=== PATIENT | female | born 1950 | race Caucasian/White ===

== ENCOUNTER 2016-11-30 05:11 | Inpatient (IN) | payer OTHER ==
[2016-11-04 14:28] VITALS: BMI 34.0
--- NOTE | 2016-11-04 15:02 | PAT Medication Instructions ---
Service Date Nov 04, 2016. Current Home Medication List Atorvastatin (Lipitor), 80 MG PO HS Gabapentin (Neurontin), 600 MG PO HS Glimepiride (Glimepiride), 1 TAB PO QPM Hctz/Lisinopril (Lisinopril/Hctz 10/12.5 Mg), 1 TAB PO QAM Levothyroxine Sodium (Levothyroxine Sodium), 1 TAB PO QAM Metformin Hcl (Glucophage), 1,000 MG PO BID Multiple Vitamins W/ Minerals (Eye Vitamins), 1 CAP PO QAM Omeprazole (Prilosec), 20 MG PO QAM Medication Instructions For Your Scheduled Surgery - Hold the following medications 48 hours prior to surgery: Metformin Hcl (Glucophage), 1,000 MG PO BID - Hold the following medications the morning of surgery: Hctz/Lisinopril (Lisinopril/Hctz 10/12.5 Mg), 1 TAB PO QAM Multiple Vitamins W/ Minerals (Eye Vitamins), 1 CAP PO QAM - Take the following medications the morning of surgery with a sip of water OTHERWISE NOTHING TO EAT OR DRINK AFTER MIDNIGHT: Omeprazole (Prilosec), 20 MG PO QAM Levothyroxine Sodium (Levothyroxine Sodium), 1 TAB PO QAM - Take the following medications as scheduled the night before surgery: Atorvastatin (Lipitor), 80 MG PO HS Gabapentin (Neurontin), 600 MG PO HS Glimepiride (Glimepiride), 1 TAB PO QPM If you have any questions please call us at [phone] or [phone] or [phone]
--- NOTE | 2016-11-04 15:35 | DIAGNOSTIC IMAGING REPORT ---
CHEST 2 VIEWS ROUTINE CLINICAL HISTORY: Preoperative evaluation. COMPARISON STUDY: No previous studies for comparison. FINDINGS: The lung volumes are normal. There is no pneumothorax or pleural effusion. There is borderline cardiomegaly without evidence of pulmonary edema. There is no consolidation to suggest pneumonia. IMPRESSION: 1. No acute cardiopulmonary findings. 2. Borderline cardiomegaly. Electronically signed by: Milton Castano M.D. 11/04/2016 3:34 PM Dictated Date/Time: 11/04/2016 3:33 PM
[2016-11-04 15:44] LABS: BASO % 0.4 %; BASO ABS # 0.03 K/uL (0-0.2); COMPLETE YES; EOS % 1.9 %; HEMATOCRIT 38.6 % (37-47); IG% 0.5 %; LYMPH % 22.2 %; LYMPH ABS # 1.74 K/uL (1.2-3.4); MEAN CELL VOLUME 92.8 fL (80-100); MEAN CORPUSCULAR HGB CONC 32.4 g/dl (32-36); MEAN PLATELET VOLUME 9.8 fL (7.4-10.4); MONO % 6.1 %; NEUT % 68.9 %; PLATELET COUNT 255 K/uL (130-400); RED BLOOD COUNT 4.16 M/uL (4.2-5.4); WHITE BLOOD COUNT 7.83 K/uL (4.8-10.8)
[2016-11-04 15:48] LABS: URINE APPEARANCE CLEAR (CLEAR); URINE BILIRUBIN NEG (NEG); URINE COLOR YELLOW; URINE EPITHELIAL CELL AUTO >30 /lpf (0-5); URINE NITRITE NEG (NEG); URINE SPECIFIC GRAVITY 1.015 (1.000-1.030); UROBILINOGEN NEG (NEG); ZZUR CULT IF INDIC CLEAN CATCH YES
[2016-11-04 15:51] LABS: MANUAL MICROSCOPIC REQUIRED? NO; REVIEW REQ? NO
[2016-11-04 15:56] LABS: INR 1.1 (0.9-1.1); PROTHROMBIN TIME (PATIENT) 11.9 SECONDS (9.0-12.0)
--- NOTE | 2016-11-29 17:29 | HISTORY & PHYSICAL EXAMINATION ---
DATE OF ADMISSION: 11/30/2016 ADMISSION HISTORY AND PHYSICAL CHIEF COMPLAINT: Chronic right knee pain. HISTORY OF PRESENT ILLNESS: This is a 66-year-old female patient of Dr. Nails'narda complaining of chronic right knee pain, longstanding, now progressively getting worse. The patient has been diagnosed with end-stage osteoarthritis, per clinical and radiographic exams. The patient has failed conservative treatment including the use of a cane, anti-inflammatories and intraarticular injections. The patient has increased pain with weightbearing activities and her pain does interfere with her activities of daily living. PAST MEDICAL HISTORY: Hypertension, hypercholesterolemia, diabetes mellitus, hypothyroidism, rheumatoid arthritis, osteoarthritis, acid reflux, obesity and endometrial cancer. SOCIAL HISTORY: Nonsmoker, nondrinker. FAMILY HISTORY: Noncontributory. REVIEW OF SYSTEMS: Chronic right knee pain, otherwise denies any shortness of breath, chest pain, nausea, vomiting or any other joint complaints. PAST SURGICAL HISTORY: Back surgery, shoulder surgery, cholecystectomy, hysterectomy and bladder surgery. ALLERGIES: No known drug allergies. MEDICATIONS: Gabapentin 600 mg at bedtime, lisinopril/hydrochlorothiazide 10/12.5 q.a.m., omeprazole 20 mg daily, atorvastatin 80 mg at bedtime, glimepiride for diabetes 1 mg before dinner, metformin b.i.d., and levothyroxine 75 mg q.a.m. PHYSICAL EXAMINATION: GENERAL: Well-developed, well-nourished 66-year-old female in no acute distress. She is alert and oriented x3 and pleasant. HEENT: Normocephalic, atraumatic. Extraocular motions are intact. Pupils are equal and reactive to light. HEART: Regular rate and rhythm, no murmurs appreciated. LUNGS: Clear. ABDOMEN: Soft and nontender, bowel sounds are present. EXTREMITIES: Right knee reveals medial joint line tenderness. Range of motion of 0-135. She has a neutral alignment. She has peripatellar pain. She has crepitation with passive range of motion. She has 5/5 strength. NEUROLOGIC: Neurovascularly, she is intact in her right lower extremity. DIAGNOSES: Right knee end-stage osteoarthritis, hypertension, hypercholesterolemia, diabetes mellitus, hypothyroidism, rheumatoid arthritis, osteoarthritis, back surgery, acid reflux, obesity, and endometrial cancer. PLAN: The patient was advised of her diagnosis. Indications, risks, benefits, and postop course have all been reviewed. The patient wishes to proceed with a right total knee arthroplasty. Necessary consent forms, preoperative testing and clearances have been obtained.
[2016-11-30] VITALS (11 sets, daily range): BP systolic 112–177; BP diastolic 73–101; PULSE 54–72; TEMP 36.3–37; O2SAT 96–100; Ht 165.1 cm; Wt 93.4 kg
[~2016-11-30] VITALS: Ht 165.1 cm; Wt 93.4 kg
[~2016-11-30 05:11] MED LIST: ATOR-26 PO; GABA1CAP PO; GLIM4TAB2 PO; LEVO75TA5 PO; LSN/10125 PO; METF-384 PO; MULTCAP7 PO; OMEP10CA2 PO
[2016-11-30] MEDS ORDERED: LACTATED RINGER'S 1000ML IV SCH ×2 (06:00)
[2016-11-30] MEDS ORDERED: FAMOTIDINE 20 MG TAB PO SCH (06:00)
[2016-11-30] MEDS ORDERED: GABAPENTIN 300 MG CAP PO SCH (06:00)
[2016-11-30] MEDS ORDERED: LACTATED RINGER'S 500 ML IV SCH (06:00)
[2016-11-30] MEDS ORDERED: ACETAMINOPHEN 500 MG TAB PO SCH (06:00)
[2016-11-30] MEDS ORDERED: CEFAZOLIN 2000 MG/60 ML D5W 60 ML IV SCH (06:00)
[2016-11-30] MEDS ORDERED: CeleBREX 200 MG CAP PO SCH (06:00)
[2016-11-30] MEDS ORDERED: METOCLOPRAMIDE HCL 10 MG TAB PO SCH (06:00)
[2016-11-30] MEDS ORDERED: ROPIVACAINE 5MG/ML 30 ML 150 MG, BUPIVACAINE/EPINEPHR 0.5% MPF 30 ML, KETOROLAC TROMETH... INFIL SCH ×6 (06:00)
[2016-11-30] MEDS ORDERED: BUPIVACAINE 0.25% 30 ML VIAL ONE (06:58)
[2016-11-30] MEDS ORDERED: BUPIVACAINE 0.5 % 5 MG/1 ML PF 10ML VIAL ONE (06:58)
[2016-11-30] MEDS: TRANEXAMIC ACID INJ 1,000 MG in SODIUM CHLORIDE 0.9% 100ML 100 ML IV SCH ×2 (07:00→10:47)
--- NOTE | 2016-11-30 07:06 | History & Physical Bridge Note ---
H&P Re-Evaluation Bridge Note: I have examined the patient, reviewed the History & Physical and in the interval since the performance of the History & Physical I have noted the following changes of clinical significance: No changes noted
[2016-11-30] MEDS ORDERED: MIDAZOLAM HCL 1 MG/ML 2ML VIAL ONE (07:11)
[2016-11-30] MEDS ORDERED: FENTANYL CITRATE INJ 50 MCG/1 ML 2 ML VIAL ONE (07:11)
[2016-11-30] MEDS ORDERED: ORTHO JOINT ANESTHETIC ONE (07:34)
[2016-11-30] MEDS ORDERED: BACITRACIN 50000 UNIT VIAL ONE (07:35)
[2016-11-30] MEDS ORDERED: POVIDONE-IODINE OP SOLN 30 ML BTL ONE (07:35)
[2016-11-30] MEDS ORDERED: FENTANYL CITRATE INJ 50 MCG/1 ML 2 ML VIAL IV PRN (08:00)
[2016-11-30] MEDS ORDERED: ATROPINE SULFATE 0.1 MG/ML 5ML SYR IV PRN (08:00)
[2016-11-30] MEDS ORDERED: EpHEDrine SULFATE INJ 50 MG/ML AMP IV PRN (08:00)
[2016-11-30] MEDS ORDERED: ONDANSETRON INJ 2 MG/ML 2 ML VIAL IV PRN (08:00)
--- NOTE | 2016-11-30 08:38 | [facility] Post Operative Brief Note ---
Immediate Operative Summary Operative Date Nov 30, 2016. Pre-Operative Diagnosis Right knee end-stage osteoartritis Post-Operative Diagnosis Right knee end-stage osteoartritis Procedure(s) Performed Right total knee arthroplasty Surgeon Dr. Nails Data Librarian Surgeon(s) Jose Chowdary PA-C Estimated Blood Loss 5cc Findings grade 4 djd patellofemoral Specimens A. Right knee bone and tissue Drains 2 hemovac Anesthesia spinal sedation orthomix Complication(s) None Disposition Recovery Room / PACU
[2016-11-30] MEDS ORDERED: LIDOCAINE HCL 2% 2 ML VIAL (20MG/ML) ONE (08:50)
[2016-11-30] MEDS ORDERED: PROPOFOL IV EMULSION 10 MG/ML 20 ML VIAL IV ONE (08:50)
[2016-11-30] MEDS ORDERED: BISACODYL 10 MG SUPP PR PRN (09:00)
[2016-11-30] MEDS ORDERED: ZOLPIDEM TARTRATE 5 MG TAB PO PRN (09:00)
[2016-11-30] MEDS ORDERED: MAGNESIUM HYDROXIDE SUSP 30 ML UDC PO PRN (09:00)
[2016-11-30] MEDS ORDERED: SOD PHOSPHATE/SOD BIPHOSPHATE ENEMA 132 ML BTL PR PRN (09:00)
[2016-11-30] MEDS ORDERED: MoRPHine SULFATE 2 MG/ML CARP IV PRN (09:00)
--- NOTE | 2016-11-30 09:42 | Anesthesiology Progress Note ---
Anesthesia Post Op Note Date & Time Nov 30, 2016 at 09:41 Vital Signs Pain Intensity: 0 Vital Signs Past 12 Hours Date Time Temp Pulse Resp B/P (MAP) Pulse Ox O2 Delivery O2 Flow Rate FiO2 11/30/16 09:35 62 15 131/67 98 Nasal Cannula 2 11/30/16 09:25 68 12 130/78 98 Mask 10 11/30/16 09:15 70 16 124/72 100 Mask 10 11/30/16 09:05 73 17 101/63 98 Mask 10 11/30/16 08:59 36.0 78 17 107/56 98 Mask 10 11/30/16 05:52 36.6 72 20 177/101 98 Room Air Notes Mental Status: alert / awake / arousable, participated in evaluation Pt Amnestic to Procedure: Yes Nausea / Vomiting: adequately controlled Pain: adequately controlled Airway Patency, RR, SpO2: stable & adequate BP & HR: stable & adequate Hydration State: stable & adequate Neuraxial Anesthesia: was administered, sensory block is resolving Anesthetic Complications: no major complications apparent
--- NOTE | 2016-11-30 09:42 | DIAGNOSTIC IMAGING REPORT ---
RIGHT KNEE 1 OR 2 VIEWS ROUTINE CLINICAL HISTORY: AP/LATERAL IN PACU RIGHT KNEE Right joint replacement COMPARISON: None. DISCUSSION: Patient is status post total right knee replacement. Good contact between prosthetic and underlying bone. Surgical drains are in position. Expected soft tissue postoperative change. IMPRESSION: Anatomic alignment status post total right knee replacement The above report was generated using voice recognition software. It may contain grammatical, syntax or spelling errors. Electronically signed by: Jose Valenzuela M.D. 11/30/2016 9:40 AM Dictated Date/Time: 11/30/2016 9:40 AM
[2016-11-30] MEDS ORDERED: GLUCOSE 10 TABS/TUBE PO PRN (09:45)
[2016-11-30] MEDS ORDERED: GLUCAGON FOR INJ 1 MG VIAL SQ PRN (09:45)
[2016-11-30] MEDS ORDERED: GLUCOSE 40% GEL 15 GM TUBE PO PRN (09:45)
[2016-11-30] MEDS ORDERED: DEXTROSE 50% 50 ML SYR IV PRN (09:45)
[2016-11-30] MEDS: SODIUM CHLORIDE 0.9% 1000ML 1,000 ML IV SCH ×2 (10:42→20:29)
[2016-11-30] MEDS ORDERED: MoRPHine SULFATE 4 MG/ML 1 ML CARP\\VIAL IV PRN (10:45)
[2016-11-30] MEDS ORDERED: GLIM1TAB2 PO (11:02)
--- NOTE | 2016-11-30 11:26 | Medical Consult ---
Consultation Date of Consultation: Nov 30, 2016. Attending Physician: Ar Nails M.D. Reason for Consultation: Post Op Medical Management History of Present Illness 66 year old female who is s/p right TKA today by Dr. Nails. Patient reports increasing right knee pain over the past couple of years. She failed outpatient conservative measures and therefore presented for the planned procedure today. Post operatively the patient is doing well. She reports her pain is well controlled. She reports continued numbness to both legs from anesthesia. She denies chest pain and shortness of breath. No abdominal pain or nausea. She denies lightheadedness and dizziness. She has not voided since surgery. Past Medical/Surgical History Medical Problems: (1) CKD (chronic kidney disease), stage III Status: Chronic (2) Diabetic polyneuropathy Status: Chronic (3) DM type 2 (diabetes mellitus, type 2) Status: Chronic (4) Dyslipidemia Status: Chronic (5) GERD (gastroesophageal reflux disease) Status: Chronic (6) HTN (hypertension) Status: Chronic (7) Hypothyroidism (acquired) Status: Chronic Surgical Problems: (1) H/O partial thyroidectomy Status: Chronic (2) History of appendectomy Status: Chronic (3) History of hysterectomy Status: Chronic (4) S/P cholecystectomy Status: Chronic Family History Diabetes mellitus FATHER MOTHER Social History Smoking Status: Never Smoker Alcohol Use: occasionally Allergies Coded Allergies: No Known Allergies (Verified , 11/30/16) Home Medications Glimepiride 1 Mg Tab 1 Tab PO DAILYBD 30 Days Levothyroxine Sodium 75 Mcg Tab 1 Tab PO QAM 90 Days Glucophage (Metformin Hcl) 1,000 Mg Tab 1,000 Mg PO BID Lipitor (Atorvastatin Calcium) 80 Mg Tab 80 Mg PO HS Lisinopril/Hctz 10/12.5 Mg (HCTZ/Lisinopril) 1 Ea Tab 1 Tab PO QAM Eye Vitamins (Multiple Vitamins W/ Minerals) 1 Cap Cap 1 Cap PO QAM Neurontin (Gabapentin) 100 Mg Cap 600 Mg PO HS Prilosec (Omeprazole) 10 Mg Cap 20 Mg PO QAM Current Inpatient Medications Current Inpatient Medications Medications (Trade) Dose Ordered Sig/Tee Route Start Time Stop Time Status Last Admin Dose Admin Lactated Ringer's 1,000 ml @ 60 mls/hr [id number] IV 11/30/16 06:00 11/30/16 22:39 11/30/16 06:26 60 MLS/HR Cefazolin Sodium 60 ml @ 100 mls/hr PREOP IV 11/30/16 06:00 11/30/16 18:00 11/30/16 07:18 100 MLS/HR Acetaminophen (Tylenol Tab) 1,000 mg PREOP PO 11/30/16 06:00 11/30/16 18:00 11/30/16 06:13 1,000 MG Celecoxib (CeleBREX CAP) 200 mg PREOP PO 11/30/16 06:00 11/30/16 18:00 11/30/16 06:14 200 MG Famotidine (Pepcid Tab) 20 mg PREOP PO 11/30/16 06:00 11/30/16 18:00 11/30/16 06:14 20 MG Gabapentin (Neurontin Cap) 300 mg PREOP PO 11/30/16 06:00 11/30/16 18:00 11/30/16 06:13 300 MG Metoclopramide HCl (Reglan Tab) 10 mg PREOP PO 11/30/16 06:00 11/30/16 18:00 11/30/16 06:13 10 MG Tranexamic Acid 1000 mg/Sodium Chloride 110 ml @ 660 mls/hr TODAY@06,0630 IV 11/30/16 06:00 11/30/16 18:00 11/30/16 07:00 660 MLS/HR Ropivacaine 150 mg/Bupivacaine HCl/Epinephrine Bitart 30 ml/ Ketorolac Tromethamine 30 mg/Ketamine HCl 10 mg/Clonidine 100 mcg/Sodium Chloride 30 ml/ Empty Bag 92.2 ml @ 0 mls/hr TODAY@06 INFIL 11/30/16 06:00 11/30/16 15:00 Lactated Ringer's 1,000 ml @ 15 mls/hr Q24H IV 11/30/16 06:00 12/01/16 05:59 Fentanyl Citrate (Fentanyl Inj) 25 mcg Q5M PRN IV 11/30/16 08:00 11/30/16 13:00 Ondansetron HCl (Zofran Inj) 4 mg ONE PRN IV 11/30/16 08:00 11/30/16 13:00 Ephedrine Sulfate (EpHEDrine SULFATE INJ) 5 mg Q5M PRN IV 11/30/16 08:00 11/30/16 13:00 Atropine Sulfate (Atropine Sulfate 0.1MG/Ml Inj) 0.5 mg Q1M PRN IV 11/30/16 08:00 11/30/16 13:00 Atorvastatin Calcium (Lipitor Tab) 80 mg HS PO 11/30/16 21:00 12/30/16 20:59 Gabapentin (Neurontin Tab) 600 mg HS PO 11/30/16 21:00 12/30/16 20:59 HCTZ/Lisinopril (Prinzide 10-12.5MG Tab) 1 tab QAM PO 11/30/16 09:00 12/30/16 08:59 Levothyroxine Sodium (Synthroid Tab) 75 mcg DAILYBB PO 12/01/16 06:00 12/31/16 05:59 Sodium Chloride 1,000 ml @ 100 mls/hr Q10H IV 11/30/16 10:31 12/01/16 10:30 11/30/16 10:42 100 MLS/HR Cefazolin Sodium 2000 mg/Dextrose 60 ml @ 100 mls/hr Q8H IV 11/30/16 16:00 12/01/16 00:35 Celecoxib (CeleBREX CAP) 200 mg BID PO 11/30/16 21:00 12/30/16 20:59 Oxycodone HCl (Roxicodone Immediate Rel Tab) 1 TABLET FOR PAIN RATING... Q4H PRN PO 11/30/16 09:00 12/14/16 08:59 Oxycodone HCl (Oxycontin Tab) 10 mg Q12 PO 11/30/16 21:00 12/14/16 20:59 Morphine Sulfate (MoRPHine SULFATE INJ) 2 mg Q2H PRN IV 11/30/16 09:00 12/14/16 08:59 Magnesium Hydroxide (Milk Of Magnesia Susp) 30 ml Q6H PRN PO 11/30/16 09:00 12/30/16 08:59 Bisacodyl (Dulcolax Supp) 10 mg DAILY PRN KS 11/30/16 09:00 12/30/16 08:59 Sodium Biphosphate/ Sodium Phosphate (Fleet Enema) 132 ml DAILY PRN KS 11/30/16 09:00 12/30/16 08:59 Docusate Sodium (coLACE CAP) 100 mg BID PO 11/30/16 21:00 12/30/16 20:59 Diphenhydramine HCl (Benadryl Cap) 25 mg Q8H PRN PO 11/30/16 09:00 12/30/16 08:59 Zolpidem Tartrate (Ambien Tab) 5 mg HSZ PRN PO 11/30/16 09:00 12/30/16 08:59 Multivitamins (Multivitamin Tab) 1 tab QAM PO 11/30/16 09:00 12/30/16 08:59 Ondansetron HCl (Zofran Inj) 4 mg Q6H PRN IV 11/30/16 09:00 12/30/16 08:59 Pantoprazole Sodium (Protonix Tab) 40 mg QAM PO 11/30/16 09:00 12/30/16 08:59 Tramadol HCl (Ultram Tab) 1 tablet for pain rating... Q4H PRN PO 11/30/16 09:00 12/30/16 08:59 Aspirin (Ecotrin Tab) 81 mg BID PO 11/30/16 21:00 12/30/16 20:59 Insulin Aspart (novoLOG ASPART) SLIDING SCALE G... ACHS SC 11/30/16 12:00 12/30/16 11:59 Glucose (Glucose 40% Gel) 15-30 GRAMS 15 GRAMS... UD PRN PO 11/30/16 09:45 12/30/16 09:44 Glucose (Glucose Chew Tab) 4-8 Tablets 4 Tabl... UD PRN PO 11/30/16 09:45 12/30/16 09:44 Dextrose (Dextrose 50% 50ML Syringe) 25-50ML OF 50% DW IV FOR... UD PRN IV 11/30/16 09:45 12/30/16 09:44 Glucagon (Glucagon Inj) 1 mg UD PRN SQ 11/30/16 09:45 12/30/16 09:44 Morphine Sulfate (MoRPHine SULFATE INJ) 4 mg Q2H PRN IV 11/30/16 10:45 12/14/16 10:44 Review of Systems ROS per HPI, all other systems reviewed and negative Physical Exam Date Time Temp Pulse Resp B/P (MAP) Pulse Ox O2 Delivery O2 Flow Rate FiO2 11/30/16 11:06 36.3 60 16 142/80 (100) 100 Nasal Cannula 2.0 11/30/16 10:55 99 Nasal Cannula 2.0 11/30/16 10:30 36.3 60 16 134/78 (96) 99 Nasal Cannula 2.0 11/30/16 10:00 37.0 68 16 144/79 (100) 98 Nasal Cannula 2.0 11/30/16 10:00 Nasal Cannula 2.0 11/30/16 10:00 37.0 62 16 144/79 (100) 99 Nasal Cannula 2.0 11/30/16 10:00 Nasal Cannula 11/30/16 09:55 60 14 124/75 99 Nasal Cannula 2 11/30/16 09:45 36.2 62 19 138/73 100 Nasal Cannula 2 11/30/16 09:35 62 15 131/67 98 Nasal Cannula 2 11/30/16 09:25 68 12 130/78 98 Mask 10 11/30/16 09:15 70 16 124/72 100 Mask 10 11/30/16 09:05 73 17 101/63 98 Mask 10 11/30/16 08:59 36.0 78 17 107/56 98 Mask 10 11/30/16 05:52 36.6 72 20 177/101 98 Room Air General Appearance: no apparent distress Head: normocephalic Eyes: normal inspection ENT: hearing grossly normal Neck: supple, no JVD Respiratory/Chest: lungs clear, normal breath sounds, no respiratory distress Cardiovascular: regular rate, rhythm, no edema, normal peripheral pulses Abdomen/GI: normal bowel sounds, non tender, soft Extremities/Musculoskelatal: + pertinent finding (s/p right knee surgery, surgical dressing intact, drain in place draining bloody drainage; BLLE sensory and movement remains impaired from anesthesia, circulation intact) Neurologic/Psych: no motor/sensory deficits, alert, normal mood/affect, oriented x 3 Skin: normal color, warm/dry Laboratory Results Last 24 Hours Test 11/30/16 05:45 11/30/16 09:05 Bedside Glucose 112 mg/dl 125 mg/dl Assessment & Plan S/P RIGHT TKA - POD#0 - activity and wound care orders as per ortho - pain control with bowel regimen - PT/OT - monitor H/H for acute blood loss anemia and transfuse blood products PRN DM - hgb a1c 6.5 10/2016 - hold oral agents and utilize SSI while hospitalized HTN - BP controlled - continue lisinopril/HCTZ DYSLIPIDEMIA - continue statin HYPOTHYROIDISM - continue levothyroxine GERD - continue PPI DVT PROPHYLAXIS - deferred to ortho Thank you for this consultation. We will follow the patient with you during their hospital stay. You can reach a [facility] via pager @ .
--- NOTE | 2016-11-30 11:44 | Progress Note ---
Progress Note Date of Service Nov 30, 2016. Progress Note Patient was seen and evaluated with PC MAINTENANCE TECHNICIAN, Jennifer Sharma. Patient is doing well S/P RIGHT TKA. No pain , chest pain, SOB, nausea, fever. EXAM: Gen- AAOX3, no distress Lungs- AEBE, no wheezing Heart- S1, S2 normal, no murmurs Abdomen- Soft, non tender, non distended, BS present Ext- S/P Right TKA with drain in Situ ASSESSMENT AND PLAN: S/P RIGHT TOTAL KNEE REPLACEMENT: - POD#0 - Pain control, activity and wound care, DVT prophylaxis, PT/OT orders as per ortho - monitor H/H for acute blood loss anemia and transfuse blood products PRN DM - hgb a1c 6.5 10/2016 - hold oral agents and utilize SSI while hospitalized HTN - BP controlled - continue lisinopril/HCTZ DYSLIPIDEMIA - continue statin HYPOTHYROIDISM - continue levothyroxine GERD - continue PPI DVT PROPHYLAXIS - deferred to ortho
[2016-11-30] MEDS: MULTIVITAMIN TAB PO SCH (12:59)
[2016-11-30] MEDS: PANTOprazole SOD 40 MG TAB PO SCH (13:00)
[2016-11-30] MEDS: LISINOPRIL/HCTZ 10/12.5MG TAB PO SCH (13:00)
[2016-11-30] MEDS: ACETAMINOPHEN 500 MG TAB PO SCH ×2 (13:00→21:46)
[2016-11-30] MEDS: INSULIN ASPART 100 UNITS/ML 3 ML PEN SC SCH ×3 (13:03→20:35)
[2016-11-30] MEDS: CEFAZOLIN IV 2,000 MG in DEXTROSE 5% 50ML 50 ML IV SCH ×2 (16:17→23:14)
[2016-11-30] MEDS: TRAMADOL HCL 50 MG TAB PO PRN (16:17)
--- NOTE | 2016-11-30 16:27 | [facility] Operative Report ---
Operative Report Operative Date Nov 30, 2016. Pre-Operative Diagnosis Right knee end-stage osteoartritis Post-Operative Diagnosis same Procedure(s) Performed Right total knee arthroplasty, lateral release. Surgeon Dr. Nails Presales Consultant Surgeon(s) Jose Chowdary PA-C Estimated Blood Loss 5cc Findings Grade 4 patellofemoral degenerative arthritis lateral tracking patella. Specimens A. Right knee bone and tissue Drains 2 hemovac Anesthesia spinal sedation orthomix Complication(s) None Disposition Recovery Room / PACU Indications Failed conservative management end-stage osteoarthritis patellofemoral joint Description of Procedure The patient was taken to the operating room and anesthetized under spinal anesthesia and sedation. Patient was placed supine on the the operating table. A pneumatic tourniquet was placed about the right upper thigh. The knee exam demonstrated patellofemoral crepitation no instability good range of motion.. An anterior longitudinal incision was made across the knee. Skin flaps were elevated. An incision was made into the medial retinaculum and extended up into the mid third of the quadriceps tendon and extended down to the tibial tubercle. Intra-articular findings demonstrated grade 4 patellofemoral DJD some lateral tracking of patella. The upper lateral condyle of the trochlear groove was grade 4 [id number] medial condyle was grade 3. Patella was grade 4 some bone loss lateral facet and large osteophytes.. The knee was exposed by excising cruciate ligaments and menisci. The infrapatellar fat pad was resected. The fat pad over the anterior femur at the upper aspect of the articular surface was resected for placement of the component in that area. A subperiosteal peel lateral release was performed around the patella. The [employer] posterior stabilized journey 2.0 total knee arthroplasty system was utilized for the procedure. The custom femoral cutting guide was pinned in position. The distal femoral cut was made. The size 5, 5 in 1 cutting block was placed. The anterior posterior and chamfer cuts were made. The knee was extended and a free hand cut technique was performed to the patella. The patella with was measured and the width was reproduced using a 35 mm patella component. 3 drill holes are made for the patella component pegs. The tibia was then subluxed. The custom tibial cutting block was pinned in position and the proximal tibial cut was made with the oscillating saw. The size 4 tibial trial was externally rotated in line with the tibial tubercle and pinned in position. The punch for the stem was used and the collet was placed. Tibial trials were used for the insert. The size 10 trial gave balanced ligaments through full range of motion. Patella tracking was assessed with range of motion. The patella had some liftoff and slight lateral tracking so I did a formal lateral release releasing the lateral retinaculum leaving the synovium intact. The patella tracked centrally. The trials were removed. The Orthomix anesthetic cocktail was injected per protocol. The cut bone surfaces and soft tissue were copiously irrigated with antibiotic solution with bacitracin. The final components were cemented with Simplex cement. The final components were [employer] journey 2.0 Oxinium right posterior stabilized femoral component size 5, 4 tibial baseplate, 10 mm polyethylene high flex insert. 35 mm patella.. While the cement cured the Betadine soak was used per protocol. When the cement cured the knee was copiously irrigated with pulsatile lavage antibiotic solution with bacitracin. 2 drains were brought out laterally connected to Hemovac. The quadriceps tendon and medial retinaculum were closed with interrupted figure-of- eight #1 Vicryl sutures. The knee was taken through full range of motion and repair was secure. The subcutaneous tissues were closed with 2-0 Vicryl sutures. The skin was closed with johny. A sterile dressing was applied. The tourniquet was let down and the patient had good capillary refill to the extremity. The patient tolerated the procedure well. My physician executive staff assistant Jose BENSON assisted in the procedure including prepping draping leg positioning soft tissue retraction instrument management and assisted in the closure ,dressings application and will participate in postoperative care the patient. I attest to the content of the Intraoperative Record and any orders documented therein. Any exceptions are noted below.
[2016-11-30] MEDS: OXYCODONE HCL IR 5 MG TAB (IMMEDIATE RELEASE) PO PRN ×2 (19:32→20:29)
[2016-11-30] MEDS: ASPIRIN 81 MG ECTAB PO SCH (20:33)
[2016-11-30] MEDS: DOCUSATE SODIUM 100 MG CAP PO SCH (20:33)
[2016-11-30] MEDS: ATORVASTATIN 20 MG TAB PO SCH (20:33)
[2016-11-30] MEDS: GABAPENTIN 600 MG TAB PO SCH (20:33)
[2016-11-30] MEDS: OXYCODONE HCL 10 MG TABCR (OXYCONTIN) PO SCH (20:33)
[2016-11-30] MEDS: CeleBREX 200 MG CAP PO SCH (20:34)
[2016-12-01] VITALS (7 sets, daily range): BP systolic 100–120; BP diastolic 67–76; PULSE 60–77; TEMP 36.6–36.9; O2SAT 92–96
[2016-12-01] MEDS: TRAMADOL HCL 50 MG TAB PO PRN ×2 (03:25→21:23)
[2016-12-01 05:40] LABS: HEMATOCRIT 33.4 % (37-47); MEAN CELL VOLUME 92.5 fL (80-100); MEAN CORPUSCULAR HEMOGLOBIN 30.2 pg (25-34); MEAN CORPUSCULAR HGB CONC 32.6 g/dl (32-36); MEAN PLATELET VOLUME 9.6 fL (7.4-10.4); PLATELET COUNT 185 K/uL (130-400); RED BLOOD COUNT 3.61 M/uL (4.2-5.4); WHITE BLOOD COUNT 11.13 K/uL (4.8-10.8)
[2016-12-01] MEDS: ACETAMINOPHEN 500 MG TAB PO SCH ×3 (05:53→21:22)
[2016-12-01] MEDS: LEVOTHYROXINE 75 MCG TAB PO SCH (05:53)
[2016-12-01] MEDS: SODIUM CHLORIDE 0.9% 1000ML 1,000 ML IV SCH (05:54)
[2016-12-01 06:09] LABS: BUN/CREATININE RATIO 13.6 (10-20); CALCIUM 7.4 mg/dl (8.5-10.1); CREATININE 1.6 mg/dl (0.60-1.20); POTASSIUM 4.2 mmol/L (3.5-5.1)
[2016-12-01] MEDS: ONDANSETRON INJ 2 MG/ML 2 ML VIAL IV PRN ×2 (06:31→12:55)
--- NOTE | 2016-12-01 08:18 | Orthopedic Progress Note ---
Orthopedic Progress Note Date of Service Dec 01, 2016. Subjective Post OP Day: 1 Reports: feeling well, pain controlled w PO medications, Denies: complaints, chest pain, SOB, nausea / vomiting, light headedness, calf pain Additional Notes: Some N/V post op, feeling better this AM. BUN/ Cr elevated. Per nursing, hemovac not holding suction. Objective calves soft nontender, N/V intact, capillary refill less than 2 sec., dressing C /D/I, A&O x3, toes mobile Date Time Temp Pulse Resp B/P (MAP) Pulse Ox O2 Delivery O2 Flow Rate FiO2 12/01/16 08:01 36.7 66 18 120/76 (91) 95 Room Air 12/01/16 08:00 Room Air 12/01/16 03:53 36.7 61 18 100/68 (79) 94 Room Air 11/30/16 23:10 Room Air 11/30/16 22:44 36.5 58 14 112/74 (87) 96 Room Air 11/30/16 19:20 36.5 60 16 127/73 (91) 98 Room Air 11/30/16 16:10 98 Room Air 11/30/16 14:57 36.5 54 18 119/77 (91) 100 Nasal Cannula 2.0 11/30/16 13:03 36.5 60 16 136/83 (100) 99 Nasal Cannula 2.0 11/30/16 11:56 36.3 60 16 124/78 (93) 100 Nasal Cannula 2.0 11/30/16 11:06 36.3 60 16 142/80 (100) 100 Nasal Cannula 2.0 11/30/16 10:55 99 Nasal Cannula 2.0 11/30/16 10:30 36.3 60 16 134/78 (96) 99 Nasal Cannula 2.0 11/30/16 10:00 37.0 68 16 144/79 (100) 98 Nasal Cannula 2.0 11/30/16 10:00 Nasal Cannula 2.0 11/30/16 10:00 37.0 62 16 144/79 (100) 99 Nasal Cannula 2.0 11/30/16 10:00 Nasal Cannula 11/30/16 09:55 60 14 124/75 99 Nasal Cannula 2 11/30/16 09:45 36.2 62 19 138/73 100 Nasal Cannula 2 11/30/16 09:35 62 15 131/67 98 Nasal Cannula 2 11/30/16 09:25 68 12 130/78 98 Mask 10 11/30/16 09:15 70 16 124/72 100 Mask 10 11/30/16 09:05 73 17 101/63 98 Mask 10 11/30/16 08:59 36.0 78 17 107/56 98 Mask 10 Laboratory Results 24 Hours: Test 12/01/16 05:19 Hematocrit 33.4 % Hemoglobin 10.9 g/dL Assessment & Plan Assessment: POD #1, Rt TKA Plan: PT/ OT DVT proph- ASA D/C planning- Home w HH As per medicine. Will D/C celebrex due to elevated BUN/ Cr D/C hemovac. Inhouse Planning Pain Management: Oxycontin, Ultram, Morphine, PO Tylenol, Oxy IR DVT Prophylaxis: TEDs, SCDs, ASA Discharge Planning Discharge Planning: home with home health Pain Management: Oxycontin, PO Tylenol, Oxy IR DVT Prophylaxis: TEDs, ASA Therapy: Physical Therapy, Occupational Therapy
[2016-12-01] MEDS: OXYCODONE HCL 10 MG TABCR (OXYCONTIN) PO SCH ×2 (09:19→21:23)
[2016-12-01] MEDS: PANTOprazole SOD 40 MG TAB PO SCH (09:19)
[2016-12-01] MEDS: LISINOPRIL/HCTZ 10/12.5MG TAB PO SCH (09:19)
[2016-12-01] MEDS: DOCUSATE SODIUM 100 MG CAP PO SCH ×2 (09:20→21:24)
[2016-12-01] MEDS: OXYCODONE HCL IR 5 MG TAB (IMMEDIATE RELEASE) PO PRN (09:20)
[2016-12-01] MEDS: MULTIVITAMIN TAB PO SCH (09:21)
[2016-12-01] MEDS: CeleBREX 200 MG CAP PO SCH ×2 (09:21→21:25)
[2016-12-01] MEDS: ASPIRIN 81 MG ECTAB PO SCH ×2 (09:21→21:24)
[2016-12-01] MEDS: INSULIN ASPART 100 UNITS/ML 3 ML PEN SC SCH ×4 (09:24→21:00)
--- NOTE | 2016-12-01 09:40 | Anesthesiology Progress Note ---
Anesthesia Post Op Note Date & Time Dec 01, 2016 at 09:39 Vital Signs Vital Signs Past 12 Hours Date Time Temp Pulse Resp B/P (MAP) Pulse Ox O2 Delivery O2 Flow Rate FiO2 12/01/16 08:42 95 Room Air 12/01/16 08:01 36.7 66 18 120/76 (91) 95 Room Air 12/01/16 08:00 Room Air 12/01/16 03:53 36.7 61 18 100/68 (79) 94 Room Air 11/30/16 23:10 Room Air 11/30/16 22:44 36.5 58 14 112/74 (87) 96 Room Air Notes Mental Status: alert / awake / arousable, participated in evaluation Pt Amnestic to Procedure: Yes Nausea / Vomiting: adequately controlled Pain: adequately controlled Airway Patency, RR, SpO2: stable & adequate BP & HR: stable & adequate Hydration State: stable & adequate Neuraxial Anesthesia: sensory block resolved Anesthetic Complications: no major complications apparent
--- NOTE | 2016-12-01 18:39 | Progress Note ---
Internal Med Progress Note Date of Service: Dec 01, 2016. Provider Documentation: SUBJECTIVE: has minimum knee pain no complain of dizzy spell no SOB or BERGMAN OBJECTIVE: Vital Signs-as noted below Exam: General-no sign of distress Eyes-sclera non icteric Lungs-CTA Heart-regular S1/S2 Abdomen-soft, non tender Extremities-S/P rt knee surgery Neuro: no focal deficit Lab data as noted below. ASSESSMENT & PLAN: S/P RIGHT TKA - POD#1 - - cont PT/OT - Hb dropped form 12-> 10 for acute blood loss anemia -no symptom -follow , no indication for PRBC transfusion DM - hgb a1c 6.5 10/2016 - hold oral agents and utilize SSI while hospitalized HTN - BP is low -due to post op status S/P IVF pt is encouraged to drink more fluid will hold isinopril/HCTZ CKD STAGE 3 : cr 1.5 as per 10/2016 lab follow will hold HCTZ /lisinopril for low BP DYSLIPIDEMIA - continue statin HYPOTHYROIDISM - continue levothyroxine GERD - continue PPI DVT PROPHYLAXIS - deferred to ortho DISPOSITION Per Ortho Vital Signs: Date Time Temp Pulse Resp B/P (MAP) Pulse Ox O2 Delivery O2 Flow Rate FiO2 12/01/16 16:20 Room Air 12/01/16 15:19 36.6 60 17 109/67 (81) 94 Room Air 12/01/16 11:58 36.7 64 16 106/68 (81) 92 Room Air 12/01/16 10:38 77 96 12/01/16 08:42 95 Room Air 12/01/16 08:01 36.7 66 18 120/76 (91) 95 Room Air 12/01/16 08:00 Room Air 12/01/16 03:53 36.7 61 18 100/68 (79) 94 Room Air 11/30/16 23:10 Room Air 11/30/16 22:44 36.5 58 14 112/74 (87) 96 Room Air 11/30/16 19:20 36.5 60 16 127/73 (91) 98 Room Air Lab Results: Results Past 24 Hours Test 11/30/16 20:34 12/01/16 05:19 12/01/16 07:57 12/01/16 12:06 Range/Units Bedside Glucose 136 133 111 70-90 mg/dl White Blood Count 11.13 4.8-10.8 K/uL Red Blood Count 3.61 4.2-5.4 M/uL Hemoglobin 10.9 12.0-16.0 g/dL Hematocrit 33.4 37-47 % Mean Corpuscular Volume 92.5 80-100 fL Mean Corpuscular Hemoglobin 30.2 25-34 pg Mean Corpuscular Hemoglobin Concent 32.6 32-36 g/dl RDW Standard Deviation 45.2 36.4-46.3 fL RDW Coefficient of Variation 13.4 11.5-14.5 % Platelet Count 185 130-400 K/uL Mean Platelet Volume 9.6 7.4-10.4 fL Sodium Level 141 136-145 mmol/L Potassium Level 4.2 3.5-5.1 mmol/L Chloride Level 109 98-107 mmol/L Carbon Dioxide Level 27 21-32 mmol/L Anion Gap 5.0 3-11 mmol/L Blood Urea Nitrogen 22 7-18 mg/dl Creatinine 1.60 0.60-1.20 mg/dl Est Creatinine Clear Calc Drug Dose 39.6 ml/min Estimated GFR () 38.8 Estimated GFR (Non- 33.5 BUN/Creatinine Ratio 13.6 10-20 Random Glucose 102 70-99 mg/dl Calcium Level 7.4 8.5-10.1 mg/dl Hepatitis C Antibody Screen NEG NEG Test 12/01/16 16:45 Range/Units Bedside Glucose 123 70-90 mg/dl
[2016-12-01] MEDS: GABAPENTIN 600 MG TAB PO SCH (21:24)
[2016-12-01] MEDS: ATORVASTATIN 20 MG TAB PO SCH (21:24)
[2016-12-02] MEDS: ACETAMINOPHEN 500 MG TAB PO SCH ×2 (05:28→14:47)
[2016-12-02] MEDS: LEVOTHYROXINE 75 MCG TAB PO SCH (05:28)
[2016-12-02 05:45] LABS: HEMATOCRIT 31.1 % (37-47); MEAN CELL VOLUME 92.6 fL (80-100); MEAN CORPUSCULAR HEMOGLOBIN 30.4 pg (25-34); MEAN CORPUSCULAR HGB CONC 32.8 g/dl (32-36); MEAN PLATELET VOLUME 9.5 fL (7.4-10.4); PLATELET COUNT 201 K/uL (130-400); RED BLOOD COUNT 3.36 M/uL (4.2-5.4)
[2016-12-02 06:09] LABS: BUN/CREATININE RATIO 14.6 (10-20); CALCIUM 7.6 mg/dl (8.5-10.1); CREATININE 1.8 mg/dl (0.60-1.20); POTASSIUM 4.3 mmol/L (3.5-5.1)
[2016-12-02 06:28] VITALS: BP 99/62; PULSE 59; TEMP 36.6; O2SAT 95
--- NOTE | 2016-12-02 07:28 | Orthopedic Progress Note ---
Orthopedic Progress Note Date of Service Dec 02, 2016. Subjective Post OP Day: 2 Reports: nausea / vomiting, pain controlled w PO medications, Denies: chest pain , SOB, light headedness, calf pain Objective calves soft nontender, N/V intact, dressing C/D/I, A&O x3, toes mobile Siverlon in tact. Date Time Temp Pulse Resp B/P (MAP) Pulse Ox O2 Delivery O2 Flow Rate FiO2 12/02/16 06:28 36.6 59 16 99/62 (74) 95 Room Air 12/01/16 23:30 Room Air 12/01/16 22:52 36.9 62 16 113/73 (86) 93 Room Air 12/01/16 16:20 Room Air 12/01/16 15:19 36.6 60 17 109/67 (81) 94 Room Air 12/01/16 11:58 36.7 64 16 106/68 (81) 92 Room Air 12/01/16 10:38 77 96 12/01/16 08:42 95 Room Air 12/01/16 08:01 36.7 66 18 120/76 (91) 95 Room Air 12/01/16 08:00 Room Air Laboratory Results 24 Hours: Test 12/02/16 05:18 Hematocrit 31.1 % Hemoglobin 10.2 g/dL Assessment & Plan Assessment: POD #2, Rt TKA Plan: PT/ OT DVT proph- ASA D/C planning- Home w HH today if N/V resolved. Will D.C narcs. As per medicine. Will D/C celebrex due to elevated BUN/ Cr Inhouse Planning Pain Management: Oxycontin, Ultram, Morphine, PO Tylenol, Oxy IR DVT Prophylaxis: TEDs, SCDs, ASA Discharge Planning Discharge Planning: home with home health Pain Management: Oxycontin, PO Tylenol, Oxy IR DVT Prophylaxis: TEDs, ASA Therapy: Physical Therapy, Occupational Therapy
[2016-12-02] MEDS ORDERED: ASPEC81 PO (07:31)
[2016-12-02] MEDS ORDERED: ACET-24 PO (07:31)
[2016-12-02] MEDS ORDERED: ONDA8TAB6 PO (07:31)
[2016-12-02] MEDS ORDERED: ULT50X PO (07:31)
--- NOTE | 2016-12-02 07:33 | Discharge Instructions ---
Discharge Instructions Date of Service Dec 02, 2016. Admission Reason for Admission: Right Knee Degenerative Joint Disease Discharge Discharge Diagnosis / Problem: Right TKA Discharge Goals Goal(s): Improve function Activity Recommendations Activity Limitations: as noted below . Instructions / Follow-Up Instructions / Follow-Up ACTIVITY RECOMMENDATIONS: SELF CARE INSTRUCTIONS AFTER TOTAL KNEE REPLACEMENT A. You may need to continue a physical therapy program after discharge from the hospital. There are several options available to you. Your doctor will assist you in selecting the best one for you. 1. An out-patient facility 2 to 3 times a week for therapy or home therapy. 2. Continue working on all exercises taught to you in the hospital. Your goals should be to increase bending of your knee to 90 degrees and beyond and to fully straighten your knee. B. You may progress at your own pace from walking with a walker or crutches to a cane; then to no assistive devices. C. Make walking a part of your daily routine. Be up as much as comfortable with rest periods throughout the day. Rest with leg elevation is very important. Use the ice wrap frequently for the first 3-4 weeks. D. There are no restrictions on activities. You may ride in a car, shop, participate in colorman and all social activities. E. Wear the long elastic stockings (KIMMIE hose) 20 hours a day for 2 weeks after surgery. They can be removed several times a day for laundering and for a bath. F. You may shower, no tub baths until cleared by your doctor. SPECIAL CARE INSTRUCTIONS: VERY IMPORTANT TO READ AND REVIEW A. There are a few signs you need to watch for after you are home. Call [facility] if you notice any of the followin. Increased severe knee pain. Some pain is expected especially when you exercise. 2. Increased swelling in your leg or knee; pain or swelling of the calf muscle in either lower leg. 3. Any fluid drainage from the incision. 4. Shortness of breath or chest pain. B. Please call [facility] at if you have any concerns or questions about your operation or recovery. The doctor or his nurse will return your call promptly. C. You must take antibiotics before dental work, bladder, bowel or other surgery. Your doctor will provide you with a permanent care to carry describing this precaution. IMPORTANT: * REMEMBER TO TAKE ASPIRIN, 81 MG, TWICE DAILY FOR 4 WEEKS UNLESS OTHERWISE DIRECTED. THIS IS YOUR BLOOD THINNER. * HIGH RISK PATIENTS MAY BE PRESCRIBED A STRONGER BLOOD THINNER. THIS WILL BE PROVIDED AT DISCHARGE. * CALL IF INCREASED PAIN, REDNESS, DRAINAGE OR FEVER GREATER THAT 101. * WEAR KIMMIE HOSE 20 HOURS PER DAY FOR 2 WEEKS. * YOU MAY HAVE A LARGE BAND-AID LIKE DRESSING (SILVERON). THIS WILL REMAIN ON YOUR INCISION FOR 7 DAYS, THEN CAN BE REMOVED. IF INCISION IS LEAKING THROUGH DRESSING, CALL THE OFFICE . FOLLOW UP VISIT: If appointment is not already scheduled: Please call [facility] to make a follow-up appointment for 2 weeks after your surgery at . Current Hospital Diet Patient's current hospital diet: Diabetes Type 2 Diet Discharge Diet Recommended Diet: Diabetes Type 2 Diet Procedures Procedures Performed: Right total knee arthroplasty Pending Studies Studies pending at discharge: no Medical Emergencies . Who to Call and When: Medical Emergencies: If at any time you feel your situation is an emergency, please call 531 immediately. . Non-Emergent Contact Non-Emergency issues call your: Primary Care Provider . "Provider Documentation" section prepared by Jose Chowdary. . VTE Core Measure Inpt VTE Proph given/why not?: Other Anticoagulation (asa), Marta.Michel [facility] Drug Monitoring Program Search Results: patient reviewed within database, no issues identified
[2016-12-02 07:37] VITALS: BP 110/70; PULSE 65; TEMP 36.8; O2SAT 97
[2016-12-02 07:41] VITALS: O2SAT 97
[2016-12-02] MEDS: ONDANSETRON INJ 2 MG/ML 2 ML VIAL IV PRN (07:41)
[2016-12-02] MEDS: INSULIN ASPART 100 UNITS/ML 3 ML PEN SC SCH ×2 (08:00→13:36)
[2016-12-02] MEDS: PANTOprazole SOD 40 MG TAB PO SCH (09:00)
[2016-12-02] MEDS: MULTIVITAMIN TAB PO SCH (09:00)
[2016-12-02] MEDS ORDERED: PROMETHAZINE HCL INJ 12.5 MG in SODIUM CHLORIDE 0.9% 50ML 50 ML IV PRN (09:15)
[2016-12-02] MEDS ORDERED: SODIUM CHLORIDE 0.9% 1000ML 1,000 ML IV SCH (09:30)
[2016-12-02] MEDS: DOCUSATE SODIUM 100 MG CAP PO SCH (10:17)
[2016-12-02] MEDS: ASPIRIN 81 MG ECTAB PO SCH (10:18)
[2016-12-02 12:00] VITALS: BP 120/80; PULSE 60; TEMP 36.5; O2SAT 93
[2016-12-02 13:25] VITALS: BP 120/80; PULSE 60; TEMP 36.5; O2SAT 93
--- NOTE | 2016-12-14 19:36 | DISCHARGE SUMMARY ---
HISTORY OF PRESENT ILLNESS: This is a 66-year-old female patient of Dr. Nails'narda complaining of chronic right knee pain, long-standing and progressively getting worse. The patient has been diagnosed with end-stage osteoarthritis and failed conservative treatment. She elected to proceed with a right total knee arthroplasty. PAST MEDICAL HISTORY: Hypertension, hypercholesterolemia, diabetes mellitus, hypothyroidism, rheumatoid arthritis, osteoarthritis, acid reflux, obesity, endometrial cancer and stage 3 kidney disease. POSTOPERATIVE COURSE: The patient underwent a right total knee arthroplasty on 11/30/2016. She was followed closely with medical consultation, DVT prophylaxis in the form of aspirin, pain control and physical therapy. The patient did have some nausea and vomiting for the first 24-48 hours after surgery. This was thought to be due to narcotics as well as anesthesia. The patient's pain was controlled fairly well, so we did stop all narcotics. We kept her on tramadol as needed and Tylenol every 8 hours. The patient's nausea and vomiting resolved prior to discharge. The patient did have a history of chronic renal disease which was followed closely with medical consultation and was at her baseline upon discharge. We did avoid nephrotoxic agents. PHYSICAL EXAMINATION: On discharge, her right knee Silverlon dressing was clean, dry and intact. Skin edges; there was no redness or drainage. She had no calf tenderness. Negative Homans sign. Neurologically and neurovascularly she is intact in her right lower extremity. DIAGNOSES: Status post right total knee arthroplasty, hypertension, hypercholesterolemia, diabetes mellitus, hypothyroidism, rheumatoid arthritis, osteoarthritis, acid reflux, obesity, endometrial cancer and stage 3 kidney disease. PLAN: The patient was discharged home with home health services. She will continue her preadmission medications as well as aspirin for DVT prophylaxis. She will have pain medications in the form of tramadol and continue her Tylenol. She will follow up with her physician for regularly scheduled visits for her comorbidities. The patient will follow up as an outpatient as scheduled.
== END 2016-12-02 15:17 | disposition home health service (06) | DRG 470 ==
LOC: C.ACU 05:11 → C.3E 07:00 → ENRESERV 09:34
PROVIDERS: ADMIT Orthopaedic Surgery Sports Medicine; ATTEND Orthopaedic Surgery Sports Medicine
PROC: 0MNN0ZZ Release Right Knee Bursa and Ligament, Open Approach (ICD-10-PCS; principal; 2016-11-30 07:00)
PROC: 0SRC0J9 Replacement of Right Knee Joint with Synthetic Substitute, Cemented, Open Approach (ICD-10-PCS; principal; 2016-11-30 07:00)
DX: M17.11 Unilateral primary osteoarthritis, right knee (principal); D62 Acute posthemorrhagic anemia; I95.9 Hypotension, unspecified; R11.2 Nausea with vomiting, unspecified; I12.9 Hypertensive chronic kidney disease with stage 1 through stage 4 chronic kidney disease, or unspecified chronic kidney disease; E11.22 Type 2 diabetes mellitus with diabetic chronic kidney disease; N18.3 Chronic kidney disease, stage 3 (moderate); E11.42 Type 2 diabetes mellitus with diabetic polyneuropathy; E78.00 Pure hypercholesterolemia, unspecified; E78.5 Hyperlipidemia, unspecified; K21.9 Gastro-esophageal reflux disease without esophagitis; E89.0 Postprocedural hypothyroidism; M06.9 Rheumatoid arthritis, unspecified; E66.9 Obesity, unspecified; Z68.34 Body mass index [BMI] 34.0-34.9, adult; Z79.84 Long term (current) use of oral hypoglycemic drugs; Z79.899 Other long term (current) drug therapy

== ENCOUNTER 2021-09-19 12:00 | Inpatient (IN) ==
--- NOTE | 2021-09-19 12:08 | Emergency Department Note ---
Impression & Plan Syncope, Hypomagnesemia, Elevated troponin, Hyponatremia, Closed fracture nasal bone ED Provider Note NAME: JEWELS RILEY AGE: 71 SEX: F : 1950 ARRIVES VIA: Ambulance INFORMANT: Patient, ED PROVIDER(S): Jonny Flores MD Chief Complaint: Fall, syncope HPI: Patient presents due to concern for fall and possible syncopal event which occurred last evening. Patient states that she had went to go take a shower and had ended up on the floor. The patient thinks that this may have occurred between 730 and 8:00 and had been potentially passed out for 1 hour. The patient's family member had try to get a hold of her and then her son who presented around 10:00 to get her up off the floor. The patient denies any presyncopal symptoms. The patient denies any tongue biting or incontinence. No history of seizures. Patient does complain of mild nasal pain. Patient is any blood thinning medications. The patient did not take anything for pain prior to arrival. The patient denies any numbness tingling or focal weakness. No prior history of heart or lung disease. The patient does have a history of diabetes and does take medications and states that her sugar that she had checked at home was in the 300s. Patient denies any nausea vomiting or diarrhea. ROS: See HPI for pertinent positives and negatives. A total of 10 systems were reviewed and otherwise negative. Past medical history: See below Surgical history: See below Social history: See below Physical Exam: GENERAL: Well appearing, well nourished, NAD, wearing glasses, wearing a mask, non-toxic. EYE EXAM: Normal conjunctiva. PERRL, no anisocoria and EOM's grossly intact w/o pain. OROPHARYNX: Moist mucus membranes. Grossly normal dentition. Face: Mild pain with skin ecchymosis to the nasal bridge. No obvious deformity. No malocclusion or pain to the mandible or maxilla. NECK: Supple, no nuchal rigidity, no adenopathy, non-tender. No signs of meningismus. FROM of the neck with good chin to chest and neck extension. No stridor. LUNGS: Clear to auscultation. Normal chest wall mechanics. HEART: NSR, no MRG. ABDOMEN: Abdomen soft, non-tender, normo-active bowel sounds, no masses, no rebound or guarding. BACK: No CVA TTP. SKIN: No rashes and no bruising. UPPER EXTREMITIES: Upper extremities are grossly normal. LOWER EXTREMITIES: Grossly normal, no edema. NEURO EXAM: A&O x3, cranial nerves II-XII grossly intact, normal speech, moves all 4 extremities on command w/o issue. Good finger to nose, no drift, no sensory deficits. Differential diagnoses: Vasovagal event, dehydration, infection, hypoglycemia, electrolyte abnormalities, cardiac sources, intracerebral event, pulmonary embolism, seizure, toxicologic, neurologic, as well as other pathologies. Course: Patient was seen and evaluated the bedside. Full history physical exam was performed. EKG interpreted by me Normal sinus rhythm, rate of 84, normal intervals, left axis deviation, T wave version in lead III and aVF. No obvious ST elevations. Imaging Studies: See Below Cardiac monitoring: An order was placed for continuous cardiac monitoring. The monitor shows a rate of 92 with sinus rhythm. MDM: Patient was seen due to concern for fall and possible syncope. Blood work is obtained along with an EKG and creatinine kinase. IV fluids ordered. Patient has a normal white count with mild anemia 11.7 hemoglobin. Platelet count is unremarkable. Kidney function with a creat of 1.3. Hyponatremia 128 albeit somewhat pseudohyponatremia given the patient's hyperglycemia 323. Patient's troponin is elevated. No obvious ischemic changes on EKG. Patient denies any chest pains. Patient CTs show a nasal bone fracture but otherwise no remarkable findings. I did speak the on-call hospitalist Dr. Shields and the patient was admitted to the medicine service. Past Med/Surg History Medical History (Updated 09/19/21 @ 18:48 by Jonny Flores MD) CKD (chronic kidney disease), stage III Diabetic polyneuropathy DM type 2 (diabetes mellitus, type 2) Dyslipidemia GERD (gastroesophageal reflux disease) HTN (hypertension) Hypothyroidism (acquired) Surgical History H/O partial thyroidectomy History of appendectomy History of hysterectomy S/P cholecystectomy Social History Smoking Status: Never smoker Hx Alcohol Use: No Hx Substance Use: No Preferred Language: Kiswahili Communication Ability: Effective Web Content & Social Media Manager Required: No Beliefs That Will Affect Care: None Current Living Situation: Alone Other Information That Helps Us Care for You: No Feels Safe at Home: Yes Safety Concerns: Feels Safe At This Time Assistive Devices: Denture - Upper, Glasses and Walker Allergies Allergies Allergy/AdvReac Type Severity Reaction Status Date / Time No Known Allergies Allergy Unknown Verified 09/19/21 12:21 Home Meds Home Medications Medication Instructions Recorded Confirmed GABAPENTIN (NEURONTIN) 600 mg PO TID #0 08/05/11 09/19/21 OMEPRAZOLE (PRILOSEC) 20 mg PO QAM #0 08/05/11 09/19/21 ATORVASTATIN (LIPITOR) 80 mg PO HS #0 tab 11/04/16 09/19/21 HCTZ/LISINOPRIL (Lisinopril/Hctz 1 tab PO QAM #0 tab 11/04/16 09/19/21 10/12.5 Mg) LEVOTHYROXINE SODIUM 1 tab PO QAM 90 Days #90 tab 11/04/16 09/19/21 METFORMIN HCL (GLUCOPHAGE) 1,000 mg PO BID #0 tab 11/04/16 09/19/21 MULTIPLE VITAMINS W/ MINERALS (EYE 1 cap PO QAM #0 11/04/16 09/19/21 VITAMINS) GLIMEPIRIDE 1 tab PO DAILYBD 30 Days #0 tab 11/30/16 09/19/21 Previous Rx's Medication Instructions Recorded ACETAMINOPHEN (SB NON-ASPIRIN 1,000 mg PO Q8 21 Days #126 tab 12/02/16 EXTRA STRE) Aspirin (Aspirin EC Low Dose) 81 mg PO BID 30 Days #60 12/02/16 Tramadol HCl 50 - 100 mg PO Q4H PRN #60 tab 12/02/16 Results & Data (ED) Vital Signs Vital Signs - 24 hr 09/19/21 12:06 09/19/21 12:24 09/19/21 13:00 Temperature 37.8 C H 37.5 C Temperature Source Oral Oral Pulse Rate 95 H Pulse Rate [Apical] 79 Pulse Rhythm [Apical] Pulse Strength [Apical] Respiratory Rate 20 18 Respiratory Effort / Characteristics Non-Labored Respiratory Depth Normal Blood Pressure 134/97 Blood Pressure [Left Arm] 142/94 H Blood Pressure Mean 109 Blood Pressure Mean [Left Arm] 110 Blood Pressure Position Sitting Pulse Oximetry 96 98 96 Oxygen Delivery Method Room Air Room Air Room Air Sepsis Recent Fever Within 48 Hours Yes Sepsis New/Unexplained Change in Mental Status No Sepsis Action Taken by Nursing No Action Required 09/19/21 15:00 Temperature Temperature Source Pulse Rate Pulse Rate [Apical] 78 Pulse Rhythm [Apical] Regular Pulse Strength [Apical] Normal Respiratory Rate 16 Respiratory Effort / Characteristics Non-Labored Spontaneous Respiratory Depth Normal Blood Pressure Blood Pressure [Left Arm] 126/78 Blood Pressure Mean Blood Pressure Mean [Left Arm] 94 Blood Pressure Position Pulse Oximetry 94 Oxygen Delivery Method Room Air Sepsis Recent Fever Within 48 Hours Sepsis New/Unexplained Change in Mental Status Sepsis Action Taken by [facility] Medications Current Medication List: was personally reviewed by me Laboratory Data Attestation: I reviewed the patient's lab results. Result diagrams: 09/19/21 12:10 09/19/21 12:10 Lab Results 09/19/21 09/19/21 09/19/21 Range/Units 12:10 12:10 12:10 WBC 6.45 (4.8-10.8) K/uL RBC 3.94 L (4.2-5.4) M/uL Hgb 11.7 L (12.0-16.0) g/dL Hct 34.7 L (37-47) % MCV 88.1 (80-100) fL MCH 29.7 (25-34) pg MCHC 33.7 (32-36) g/dL RDW Std Deviation 45.1 (36.4-46.3) fL RDW Coeff of Edgard 13.9 (11.5-14.5) % Plt Count 153 (130-400) K/uL MPV 11.0 H (7.4-10.4) fL Immature Gran % (Auto) 0.2 % Neut % (Auto) 78.3 % Lymph % (Auto) 12.2 % Shelby % (Auto) 8.2 % Eos % (Auto) 0.6 % Baso % (Auto) 0.5 % Neut # (Auto) 5.05 (1.4-6.5) K/uL Lymph # (Auto) 0.79 L (1.2-3.4) K/uL Shelby # (Auto) 0.53 (0.11-0.59) K/uL Eos # (Auto) 0.04 (0-0.5) K/uL Baso # (Auto) 0.03 (0-0.2) K/uL Immature Gran # (Auto) 0.01 (0.00-0.02) K/uL Sodium 128 L (136-145) mmol/L Potassium 4.5 (3.5-5.1) mmol/L Chloride 98 (98-107) mmol/L Carbon Dioxide 24 (21-32) mmol/L Anion Gap 6 (3-11) BUN 14 (6-23) mg/dl Creatinine 1.33 H (0.6-1.2) mg/dl Est Cr Clr Drug Dosing 39.5 ml/min Est GFR ( Amer) 46.8 ml/min Est GFR (Non-Af Amer) 40.4 ml/min BUN/Creatinine Ratio 10.5 (10-20) Glucose 323 H* (70-99(Fasting)) mg/dl Calcium 9.2 (8.5-10.1) mg/dl Magnesium 1.5 L (1.7-2.4) mg/dl Total Bilirubin 0.8 (0.2-1.0) mg/dl AST 75 H (13-39) U/L ALT 46 (7-52) U/L Alkaline Phosphatase 88 (34-104) U/L Total Creatine Kinase 292 H (26-192) U/L Troponin I High Sens 82.1 H* (0-14) pg/ml Total Protein 9.0 H (6.0-8.3) gm/dl Albumin 3.2 L (3.4-5.0) gm/dl Globulin 5.8 H (2.5-4.0) gm/dl Albumin/Globulin Ratio 0.6 L (0.9-2) TSH 0.454 (0.300-4.500) uIu/ml Urine Osmolality (500-800) mOsm/kg Ur Random Sodium mmol/L SARS-CoV-2, RNA, NAAT (NEGATIVE) 09/19/21 09/19/21 09/19/21 Range/Units 13:03 13:03 14:30 WBC (4.8-10.8) K/uL RBC (4.2-5.4) M/uL Hgb (12.0-16.0) g/dL Hct (37-47) % MCV (80-100) fL MCH (25-34) pg MCHC (32-36) g/dL RDW Std Deviation (36.4-46.3) fL RDW Coeff of Edgard (11.5-14.5) % Plt Count (130-400) K/uL MPV (7.4-10.4) fL Immature Gran % (Auto) % Neut % (Auto) % Lymph % (Auto) % Shelby % (Auto) % Eos % (Auto) % Baso % (Auto) % Neut # (Auto) (1.4-6.5) K/uL Lymph # (Auto) (1.2-3.4) K/uL Shelby # (Auto) (0.11-0.59) K/uL Eos # (Auto) (0-0.5) K/uL Baso # (Auto) (0-0.2) K/uL Immature Gran # (Auto) (0.00-0.02) K/uL Sodium (136-145) mmol/L Potassium (3.5-5.1) mmol/L Chloride (98-107) mmol/L Carbon Dioxide (21-32) mmol/L Anion Gap (3-11) BUN (6-23) mg/dl Creatinine (0.6-1.2) mg/dl Est Cr Clr Drug Dosing ml/min Est GFR ( Amer) ml/min Est GFR (Non-Af Amer) ml/min BUN/Creatinine Ratio (10-20) Glucose (70-99(Fasting)) mg/dl Calcium (8.5-10.1) mg/dl Magnesium (1.7-2.4) mg/dl Total Bilirubin (0.2-1.0) mg/dl AST (13-39) U/L ALT (7-52) U/L Alkaline Phosphatase (34-104) U/L Total Creatine Kinase (26-192) U/L Troponin I High Sens (0-14) pg/ml Total Protein (6.0-8.3) gm/dl Albumin (3.4-5.0) gm/dl Globulin (2.5-4.0) gm/dl Albumin/Globulin Ratio (0.9-2) TSH (0.300-4.500) uIu/ml Urine Osmolality 372 L (500-800) mOsm/kg Ur Random Sodium 55 mmol/L SARS-CoV-2, RNA, NAAT NEGATIVE (NEGATIVE) Administered Medications Acetaminophen (Acetaminophen 325 Mg Tab) 650 mg PO Q4H PRN PRN Reason: Pain or Fever Stop: 10/19/21 15:47 Last Admin: 09/19/21 16:08 Dose: 650 mg Documented by: [id number] Sodium Chloride (Nss 1000ml) 1,000 mls @ 75 mls/hr IV .[id number] [place] Stop: 09/20/21 18:24 Last Admin: 09/19/21 16:27 Dose: 75 mls/hr Documented by: [id number] Magnesium Sulfate/Dextrose (Magnesium Sulfate / D5w) 1 gm in 100 mls @ 50 mls/hr IV Q2H [place] Stop: 09/19/21 19:59 Last Admin: 09/19/21 18:35 Dose: 50 mls/hr Documented by: [id number] Infusion: 09/19/21 18:27 Dose: 50 mls/hr Documented by: [id number] Admin: 09/19/21 16:27 Dose: 50 mls/hr Documented by: [id number] Insulin Aspart (Insulin Aspart Per Unit) 0 units SC ACHS [place] Stop: 10/19/21 16:29 Last Admin: 09/19/21 17:34 Dose: 5 units Documented by: [id number] Cosigned by: [id number] Discontinued Medications Sodium Chloride (Nss 1000ml) 1,000 mls @ 999 mls/hr IV .[id number] [place] Stop: 09/19/21 13:30 Last Infusion: 09/19/21 14:39 Dose: 0 mls/hr Documented by: [id number] Admin: 09/19/21 12:42 Dose: 999 mls/hr Documented by: [id number] Magnesium Sulfate/Dextrose (Magnesium Sulfate / D5w) 1 gm in 100 mls @ 100 mls/hr IV NOW [facility] Stop: 09/19/21 15:16 Last Infusion: 09/19/21 15:35 Dose: 0 mls/hr Documented by: [id number] Admin: 09/19/21 14:29 Dose: 100 mls/hr Documented by: [id number] Imaging Data Radiologist's Impression: Chest X-Ray 09/19/21 12:24 XR chest 1V portable HISTORY: Fall. weakness COMPARISON: Chest 11/04/2016. FINDINGS: The lungs are clear. Cardiac silhouette is normal in size. No pleural effusions. No pneumothorax. IMPRESSION: No acute process. ACT 112: Negative or not required by law. Electronically signed by: Dawood Johnson M.D. 09/19/2021 1:[address] 09/19/21 12:[address] DOSE: 864.39 mGy.cm HISTORY: Fall. Neck pain. Trauma TECHNIQUE: Multiaxial CT images of the cervical spine were performed and reformatted in the sagittal and coronal plane without the use of contrast. A dose lowering technique was utilized adhering to the principles of ALARA. COMPARISON: None. FINDINGS: No fractures. No subluxation. Prevertebral soft tissues and the C1-C2 interval are intact. No pneumothorax. Mild to moderate degenerative disc disease within the cervical spine most pronounced at the C6-C7 level. There are are also moderate facet degenerative changes throughout the cervical spine. IMPRESSION: No fractures within the cervical spine. ACT 112: Negative or not required by law. Electronically signed by: Dawood Johnson M.D. 09/19/2021 1:[address] 09/19/21 12:[address] DOSE: HISTORY: Fall. Right-sided facial injury. Trauma TECHNIQUE: Multiaxial CT images of the maxillofacial region were performed and reformatted in the coronal plane without the use of contrast. A dose lowering technique was utilized adhering to the principles of ALARA. COMPARISON: None. FINDINGS: Minimally displaced fracture within the right nasal bone. The mandible, pterygoid plates, lamina papyracea, orbital floors, zygomatic arches, and skull base are intact. The orbits are unremarkable. There is mild nasal soft tissue swelling. IMPRESSION: Slightly displaced right nasal bone fracture.. ACT 112: Negative or not required by law. Electronically signed by: Dawood Johnson M.D. 09/19/2021 1:[address] 09/19/21 12:[address] DOSE: HISTORY: Fall. Right-sided head injury. Trauma TECHNIQUE: Multiaxial CT images of the head were performed without the use of intravenous contrast. Automated exposure control was utilized for this study. A dose lowering technique was utilized adhering to the principles of ALARA. Comparison: None. Findings: The paranasal sinuses and mastoid air cells are clear. The calvarium and skull base are intact. There is no mass, hematoma, midline shift, acute infarct. White matter hypodensity is nonspecific but suggestive of microvascular ischemic change. The ventricles and sulci demonstrate mild age-related involutional changes. Impression: No acute intracranial abnormality. ACT 112: Negative or not required by law. Electronically signed by: Dawood Johnson M.D. 09/19/2021 1:21 PM Discharge Plan Visit Data Chief Complaint: Fall ED Provider: Jonny Flores Discharge Problem: Syncope, Hypomagnesemia, Elevated troponin, Hyponatremia, Closed fracture nasal bone Patient Disposition: Admitted As Inpatient Discharge Instructions Interventions: ED Discharge Assessment Last Done: 09/19/21 16:35
[2021-09-19] MEDS ORDERED: SODIUM CHLORIDE 0.9% 1000ML 1,000 ML IV SCH (12:30)
[2021-09-19 12:41] LABS: Basophils # (auto) 0.03 K/uL (0-0.2); Basophils % (auto) 0.5 %; Eosinophils # (auto) 0.04 K/uL (0-0.5); Eosinophils % (auto) 0.6 %; Hematocrit (blood only) 34.7 % (37-47); Hemoglobin 11.7 g/dL (12.0-16.0); Immature Granulocytes # (auto) 0.01 K/uL (0.00-0.02); Immature Granulocytes % (auto) 0.2 %; Lymphocytes # (auto) 0.79 K/uL (1.2-3.4); Lymphocytes % (auto) 12.2 %; Mean Corpuscular Hemoglobin 29.7 pg (25-34); Mean Corpuscular Hgb Conc 33.7 g/dL (32-36); Mean Corpuscular Volume 88.1 fL (80-100); Monocytes # (auto) 0.53 K/uL (0.11-0.59); Monocytes % (auto) 8.2 %; Neutrophils # (auto) 5.05 K/uL (1.4-6.5); Neutrophils % (auto) 78.3 %; Platelet Count 153 K/uL (130-400); RDW Coefficient of Variation 13.9 % (11.5-14.5); RDW Standard Deviation 45.1 fL (36.4-46.3); Red Blood Count 3.94 M/uL (4.2-5.4); White Blood Count 6.45 K/uL (4.8-10.8)
[2021-09-19 12:57] LABS: Albumin Globulin Ratio 0.6 (0.9-2); Albumin Level 3.2 gm/dl (3.4-5.0); BUN Creatinine Ratio 10.5 (10-20); Bilirubin,Total 0.8 mg/dl (0.2-1.0); Calcium 9.2 mg/dl (8.5-10.1); Creatinine Clr Calc Pharmacy 39.5 ml/min; Est GFR (African American) 46.8 ml/min; Est GFR (Non-African American) 40.4 ml/min; Globulin 5.8 gm/dl (2.5-4.0); Magnesium 1.5 mg/dl (1.7-2.4); Potassium 4.5 mmol/L (3.5-5.1); Troponin I High Sensitivity 82.1 pg/ml (0-14)
--- NOTE | 2021-09-19 13:23 | CT Scan Report ---
HEAD CT NONCONTRAST CT DOSE: HISTORY: Fall. Right-sided head injury. Trauma TECHNIQUE: Multiaxial CT images of the head were performed without the use of intravenous contrast. A utomated exposure control was utilized for this study. A dose lowering technique was utilized adheri ng to the principles of ALARA. Comparison: None. Findings: The paranasal sinuses and mastoid air cells are clear. The calvarium and skull base are int act. There is no mass, hematoma, midline shift, acute infarct. White matter hypodensity is nonspecifi c but suggestive of microvascular ischemic change. The ventricles and sulci demonstrate mild age-rela alida involutional changes. Impression: No acute intracranial abnormality. ACT 112: Negative or not required by law. Electronically signed by: Dawood Johnson M.D. 09/19/2021 1:21 PM
--- NOTE | 2021-09-19 13:27 | CT Scan Report ---
CERVICAL SPINE CT CT DOSE: 864.39 mGy.cm HISTORY: Fall. Neck pain. Trauma TECHNIQUE: Multiaxial CT images of the cervical spine were performed and reformatted in the sagittal and coronal plane without the use of contrast. A dose lowering technique was utilized adhering to th e principles of ALARA. COMPARISON: None. FINDINGS: No fractures. No subluxation. Prevertebral soft tissues and the C1-C2 interval are intact. No pneumothorax. Mild to moderate degenerative disc disease within the cervical spine most pronounced at the C6-C7 level. There are are also moderate facet degenerative changes throughout the cervical s pine. IMPRESSION: No fractures within the cervical spine. ACT 112: Negative or not required by law. Electronically signed by: Dawood Johnson M.D. 09/19/2021 1:25 PM
--- NOTE | 2021-09-19 13:33 | CT Scan Report ---
MAXILLOFACIAL CT CT DOSE: HISTORY: Fall. Right-sided facial injury. Trauma TECHNIQUE: Multiaxial CT images of the maxillofacial region were performed and reformatted in the cor onal plane without the use of contrast. A dose lowering technique was utilized adhering to the princ iplPelon. COMPARISON: None. FINDINGS: Minimally displaced fracture within the right nasal bone. The mandible, pterygoid plates, l letha papyracea, orbital floors, zygomatic arches, and skull base are intact. The orbits are unremark able. There is mild nasal soft tissue swelling. IMPRESSION: Slightly displaced right nasal bone fracture.. ACT 112: Negative or not required by law. Electronically signed by: Dawood Johnson M.D. 09/19/2021 1:29 PM
--- NOTE | 2021-09-19 13:51 | XRay Report ---
XR chest 1V portable HISTORY: Fall. weakness COMPARISON: Chest 11/04/2016. FINDINGS: The lungs are clear. Cardiac silhouette is normal in size. No pleural effusions. No pneumot horax. IMPRESSION: No acute process. ACT 112: Negative or not required by law. Electronically signed by: Dawood Johnson M.D. 09/19/2021 1:50 PM
[2021-09-19] MEDS ORDERED: MAGNESIUM SULFATE / D5W 1 GM/100 ML BAG IV STA (14:17)
--- NOTE | 2021-09-19 14:32 | History & Physical Report ---
Date of Service September 19, 2021 Assessment & Plan (1) Syncope: (2) Elevated troponin: (3) Rhabdomyolysis: (4) Hypomagnesemia: (5) Elevated AST (SGOT): (6) Hyponatremia: Plan: - On 28, however corrects to 132 when taking glucose into account. - Continue to monitor on a.m. labs. (7) DM type 2 (diabetes mellitus, type 2): Plan: - (8) CKD (chronic kidney disease), stage III: (9) HTN (hypertension): Plan: - Continue HCTZ/lisinopril. (10) Dyslipidemia: Plan: - Continue atorvastatin 80 mg daily. (11) Hypothyroidism (acquired): Plan: - Continue levothyroxine 75 mcg daily. (12) GERD (gastroesophageal reflux disease): Plan: - Continue PPI. History of Present Illness Primary Care Provider: Frank Paredes MD Ms. Mcgrath is a 71 y/o female with a past medical history of diabetes with diabetic neuropathy and CKD III, hypertension, hyperlipidemia, hypothyroidism, and GERD who presents from home today to be evaluated for a syncopal episode last evening. In ED, she had temp of 100.0, HR 95, BP mildly elevated 142/94, 96% on room air. Labs significant for mild anemia Hgb 11.7, sodium 128 (corrects to 132 when accounting for glucose 323), creatinine 1.33, magnesium 1.5, AST 75, CK2 92, HS troponin I 82.1. CXR showed no acute process. CT C-spine without evidence of C-spine fractures. Her x-ray showed no acute intracranial abnormality. Face CT with slightly displaced right nasal bone fracture. report--> obs ? syncope, hyponatremia (pseudo-glucose), trop shower, out for hour on floor, couldn't get up, son got up around 10, ? come in last night, bruise no nose, slight nasal bone fx, 37.8 temp, wBC count, no infxn symptoms, Allergies Allergy/AdvReac Type Severity Reaction Status Date / Time No Known Allergies Allergy Unknown Verified 09/19/21 12:21 Home Medications Medication Instructions Recorded Confirmed Type GABAPENTIN (NEURONTIN) 600 mg PO TID #0 08/05/11 09/19/21 History OMEPRAZOLE (PRILOSEC) 20 mg PO QAM #0 08/05/11 09/19/21 History ATORVASTATIN (LIPITOR) 80 mg PO HS #0 tab 11/04/16 09/19/21 History HCTZ/LISINOPRIL (Lisinopril/Hctz 1 tab PO QAM #0 tab 11/04/16 09/19/21 History 10/12.5 Mg) LEVOTHYROXINE SODIUM 1 tab PO QAM 90 Days #90 tab 11/04/16 09/19/21 History METFORMIN HCL (GLUCOPHAGE) 1,000 mg PO BID #0 tab 11/04/16 09/19/21 History MULTIPLE VITAMINS W/ MINERALS (EYE 1 cap PO QAM #0 11/04/16 09/19/21 History VITAMINS) GLIMEPIRIDE 1 tab PO DAILYBD 30 Days #0 tab 11/30/16 09/19/21 History ACETAMINOPHEN (SB NON-ASPIRIN 1,000 mg PO Q8 21 Days #126 tab 12/02/16 09/19/21 Rx EXTRA STRE) Aspirin (Aspirin EC Low Dose) 81 mg PO BID 30 Days #60 12/02/16 09/19/21 Rx Tramadol HCl 50 - 100 mg PO Q4H PRN #60 tab 12/02/16 09/19/21 Rx Past Med/Surg History Medical History (Updated 09/19/21 @ 14:28 by Macie Peters PA-C) CKD (chronic kidney disease), stage III Diabetic polyneuropathy DM type 2 (diabetes mellitus, type 2) Dyslipidemia GERD (gastroesophageal reflux disease) HTN (hypertension) Hypothyroidism (acquired) Surgical History H/O partial thyroidectomy History of appendectomy History of hysterectomy S/P cholecystectomy Social History Smoking Status: Never smoker Preferred Language: Egyptian Feels Safe at Home: Yes Results & Data Results & Data ([place]) Vital Signs (Past 12 Hours) Vital Signs Temp Pulse Pulse Resp BP BP Pulse Ox 09/19/21 13:00 37.5 C 79 18 142/94 H 96 09/19/21 12:24 98 09/19/21 12:06 37.8 C H 95 H 20 134/97 96 ECG Additional Comments: Normal sinus rhythm Left axis deviation Nonspecific T wave abnormality Prolonged QT Abnormal ECG When compared with ECG of 04-NOV-2016 15:12, Nonspecific T wave abnormality now evident in Anterolateral leads. PG Care Time/CCT Total # of Minutes Spent Total Time Spent with Patient: Total time spent is greater than 50% in coordination of care (as documented) at patient's floor/unit and/or counseling patient: Coding Diagnoses Syncope R55 DM type 2 (diabetes mellitus, type 2) E11.9 CKD (chronic kidney disease), stage III N18.3 HTN (hypertension) I10 Dyslipidemia E78.5 Hypothyroidism (acquired) E03.9 GERD (gastroesophageal reflux disease) K21.9 Hypomagnesemia E83.42 Elevated troponin R77.8 Rhabdomyolysis M62.82 Hyponatremia E87.1 Elevated AST (SGOT) R74.01
[2021-09-19] MEDS ORDERED: MAGNESIUM HYDROXIDE SUSP 30 ML UDC PO PRN (15:48)
--- NOTE | 2021-09-19 16:06 | History & Physical Report ---
Date of Service September 19, 2021 Assessment & Plan (1) Syncope: (2) Hypomagnesemia: (3) Elevated troponin: (4) Hyponatremia: Plan: #. Weakness/fall: Admitting imaging reviewed, C-spine CT/CT head/CXR with no acute findings. CT face with right nasal bone fracture. #. Syncope #. Mild hyponatremia Patient lives alone, recently lost her a month ago, has been eating and drinking less per patient's sister at bedside since about the same time. Patient came in with fall and loss of consciousness for about 45 minutes the evening prior to arrival. Admitting labs reviewed, sodium level 128, magnesium 1.5. received 1 L NS and 1 gm Mg in ED, NS at 75 ml/hr and 2 more gm of iv mag ordered. Outpatient lab reviewed, sodium of around 140, hemoglobin of around 10-11, creatinine of around 1.3. Syncope/weakness and acute hyponatremia secondary to decreased appetite ongoing for a month time. Get ortho vitals. PT/OT, telemetry monitoring. Patient received 1 L NS in the ED, continue with NS at 75 ml/hour, BMP at 9 PM, BMP in a.m., serum and urine osmolality and urine sodium. Admitting TSH WNL. Monitor/replete electrolytes. ? Zio Patch Monitor upon DC and f/u w/ PCP. #. Right nasal bone fracture Per admitting imaging, slightly displaced right nasal bone fracture, pain management. ENT consult, ?reduction need; may need f/u with ENT as OP. #. Minimal CPK elevation Patient on IV fluid, follow-up CPK in AM. #. Diabetes mellitus Type II DM, A1c 7.8 in July, patient on metformin and glipizide and Lantus 18 units daily. Patient reports Lantus was recently increased; per patient's sister, patient has not been administering insulin correctly. life educator for insulin use teachings. A1c in AM. Sliding scale. #. Minimally elevated AST AST [in July 2021] 205 (admitting AST of 75, continue to monitor). lower than OP chart review, follow as needed. #. Elevated troponin Admitting troponin of 82.1, admitting EKG nonspecific T wave abnormality in the anterolateral leads, trend troponin, EKG in a.m., patient with no chest pain. Likely secondary to acute stress. Consult cardiology/echo if with uptrending troponin. #. Regular diet for now for concerns of decreased appetite and patient needs diet. #. DVT prophylaxis: Consider DVT prophylactic anticoagulation if stays longer than 2 days, Re: facial trauma. #. Full code History of Present Illness Chief Complaint: Syncope Primary Care Provider: Frank Paredes MD 71-year-old lady with PMH of uterine cancer, benign thyroid tumor, limited mobility, GERD, HTN, HLD, T2DM, hypothyroidism due to acquired atrophy of thyroid who recently lost her about a month ago presented to our ED 09/19 with complaint of syncope the evening prior to arrival. Patient and her sister Cleo present at bedside. Per patient, she passed out around 8 PM yesterday, woke up around 8:45 PM. She only remembers getting ready for shower and does not complain of any nausea/warmth/lightheadedness/dizziness/chest pain/palpitation/visual disturbances prior to passing out. When she woke up, she was immediately aware of surroundings and did not find herself with tongue bite/involuntary passage of urine or stool. Patient found herself very weak to get herself up and couldn't call her family members. Her family members called at her home multiple times (as regular check up) which she could not picker/puller d/t not being able to get herself up and then finally her son came over to check on her. Her son helped her get up at around 10:30 PM. Patient reports finding herself lying on her back when she woke up, but it seems that she might have hit her face based on bruises present above her right eye, and right nose. Per patient's sisters at bedside, patient has not been eating/drinking well since about 1 month. Patient lost her about a month ago. Also patient was found to be not injecting her insulin correctly per patient's sister at bedside. Patient denies headache/dizziness/sore throat/cough/chest pain/palpitations/belly pain/acute changes in bowel or bladder habit. Patient reports pain in her right side of the nose. Patient denies smoking tobacco, very occasional use of alcohol, denies using recreational drugs current or past. Full code [patient's Sister Cleo Henson can be reached out if needed per patient.] Allergies Allergy/AdvReac Type Severity Reaction Status Date / Time No Known Allergies Allergy Unknown Verified 09/19/21 12:21 Home Medications Medication Instructions Recorded Confirmed Type GABAPENTIN (NEURONTIN) 600 mg PO TID #0 08/05/11 09/19/21 History OMEPRAZOLE (PRILOSEC) 20 mg PO QAM #0 08/05/11 09/19/21 History ATORVASTATIN (LIPITOR) 80 mg PO HS #0 tab 11/04/16 09/19/21 History HCTZ/LISINOPRIL (Lisinopril/Hctz 1 tab PO QAM #0 tab 11/04/16 09/19/21 History 10/12.5 Mg) LEVOTHYROXINE SODIUM 1 tab PO QAM 90 Days #90 tab 11/04/16 09/19/21 History METFORMIN HCL (GLUCOPHAGE) 1,000 mg PO BID #0 tab 11/04/16 09/19/21 History MULTIPLE VITAMINS W/ MINERALS (EYE 1 cap PO QAM #0 11/04/16 09/19/21 History VITAMINS) GLIMEPIRIDE 1 tab PO DAILYBD 30 Days #0 tab 11/30/16 09/19/21 History ACETAMINOPHEN (SB NON-ASPIRIN 1,000 mg PO Q8 21 Days #126 tab 12/02/16 09/19/21 Rx EXTRA STRE) Aspirin (Aspirin EC Low Dose) 81 mg PO BID 30 Days #60 12/02/16 09/19/21 Rx Tramadol HCl 50 - 100 mg PO Q4H PRN #60 tab 12/02/16 09/19/21 Rx Past Med/Surg History Medical History (Updated 09/19/21 @ 18:48 by Jonny Flores MD) CKD (chronic kidney disease), stage III Diabetic polyneuropathy DM type 2 (diabetes mellitus, type 2) Dyslipidemia GERD (gastroesophageal reflux disease) HTN (hypertension) Hypothyroidism (acquired) Surgical History H/O partial thyroidectomy History of appendectomy History of hysterectomy S/P cholecystectomy Social History Smoking Status: Never smoker Hx Alcohol Use: No Hx Substance Use: No Preferred Language: Malawian Communication Ability: Effective Director Process Required: No Beliefs That Will Affect Care: None Current Living Situation: Alone Other Information That Helps Us Care for You: No Feels Safe at Home: Yes Safety Concerns: Feels Safe At This Time Assistive Devices: Denture - Upper, Glasses and Walker Review of Systems Review of Systems: Negative as otherwise mentioned in HPI. Physical Exam Physical Exam: GENERAL: Alert and oriented x3. NAD, on RA. HEENT: No pallor, no icterus. Pupils equal, round and reactive to light. Oral mucosa moist. Rt supraorbital bruise and Rt nose bruise noted. NECK: No JVD, no neck masses. HEART: S1 and S2 heard. Regular rate and rhythm. No murmur, no gallop. RESPIRATORY SYSTEM: Normal AP diameter. No accessory muscle use. No wheezing, no crackles. ABDOMEN: Soft, bowel sounds present, nontender, no distention. CENTRAL NERVOUS SYSTEM: No facial droop. Speech is clear. Obeys simple commands. Moves extremities. EXTREMITIES: No edema, no erythema seen. Results & Data Results & Data ([facility]) Vital Signs (Past 12 Hours) Vital Signs Temp Pulse Pulse Resp BP BP Pulse Ox 09/19/21 15:00 78 16 126/78 94 09/19/21 13:00 37.5 C 79 18 142/94 H 96 09/19/21 12:24 98 09/19/21 12:06 37.8 C H 95 H 20 134/97 96 Code Status & VTE Plan VTE Prophylaxis Plan VTE Prophylaxis will be ordered: Yes
[2021-09-19] MEDS: ACETAMINOPHEN 325 MG TAB PO PRN (16:08)
[2021-09-19] MEDS ORDERED: CARBOHYDRATES FOR HYPOGLYCEMIA PO PRN (16:12)
[2021-09-19] MEDS ORDERED: GLUCOSE 10 TABS/TUBE PO PRN (16:12)
[2021-09-19] MEDS ORDERED: DEXTROSE 50% 50 ML SYRINGE IV PRN (16:12)
[2021-09-19] MEDS ORDERED: GLUCOSE 40% GEL 15 GM TUBE PO PRN (16:12)
[2021-09-19] MEDS ORDERED: GLUCAGON FOR INJ 1 MG VIAL SQ PRN (16:12)
[2021-09-19] MEDS: SODIUM CHLORIDE 0.9% 1000ML 1,000 ML IV SCH (16:27)
[2021-09-19] MEDS: MAGNESIUM SULFATE / D5W 1 GM/100 ML BAG IV SCH ×2 (16:27→18:35)
[2021-09-19] MEDS: INSULIN ASPART PER UNIT SC SCH ×2 (17:34→20:40)
[2021-09-19] MEDS ORDERED: LANTUS PER UNIT CHARGE SQ STA (17:53)
[2021-09-19] MEDS ORDERED: INSULIN GLARGINE SOLOSTAR 100 UNITS/ML 3 ML PEN SC STA (17:59)
[2021-09-19] MEDS: INSULIN GLARGINE SOLOSTAR 100 UNITS/ML 3 ML PEN SC SCH (20:41)
[2021-09-19] MEDS: ATORVASTATIN 40 MG TAB PO SCH (20:42)
[2021-09-19] MEDS: ASPIRIN 81 MG ECTAB PO SCH (20:42)
[2021-09-19] MEDS: GABAPENTIN 600 MG TAB PO SCH (20:42)
[2021-09-19 21:10] LABS: BUN Creatinine Ratio 9.5 (10-20); Calcium 8.8 mg/dl (8.5-10.1); Est GFR (African American) 35.1 ml/min; Est GFR (Non-African American) 30.2 ml/min; Potassium 3.5 mmol/L (3.5-5.1)
[2021-09-20] MEDS: SODIUM CHLORIDE 0.9% 1000ML 1,000 ML IV SCH (05:46)
[2021-09-20] MEDS: LEVOTHYROXINE SODIUM 88 MCG TABLET PO SCH (06:09)
[2021-09-20 06:38] LABS: BUN Creatinine Ratio 12.4 (10-20); Calcium 8.6 mg/dl (8.5-10.1); Creatinine Clr Calc Pharmacy 38.5 ml/min; Est GFR (African American) 45.2 ml/min; Phosphorus 3.6 mg/dl (2.5-4.9); Potassium 3.9 mmol/L (3.5-5.1)
[2021-09-20] MEDS: ACETAMINOPHEN 325 MG TAB PO PRN ×2 (07:15→21:06)
[2021-09-20] MEDS: PANTOprazole 40 MG TAB PO SCH (07:18)
[2021-09-20] MEDS: ASPIRIN 81 MG ECTAB PO SCH ×2 (07:18→21:06)
[2021-09-20] MEDS: GABAPENTIN 600 MG TAB PO SCH ×3 (07:18→21:06)
[2021-09-20 07:40] LABS: Estimated Average Glucose 344 mg/dl; Hemoglobin A1C 13.6 % (4.5-5.6)
[2021-09-20] MEDS: INSULIN ASPART PER UNIT SC SCH ×5 (08:11→21:31)
[2021-09-20] MEDS: INSULIN GLARGINE SOLOSTAR 100 UNITS/ML 3 ML PEN SC SCH ×2 (08:13→21:07)
[2021-09-20] MEDS ORDERED: ENOXAPARIN INJ 40 MG/0.4 ML SYR SQ SCH (09:00)
--- NOTE | 2021-09-20 09:03 | Cardiology Consultation ---
Date of Consultation September 20, 2021 Assessment & Plan (1) Closed fracture nasal bone: (2) Elevated AST (SGOT): (3) Hyponatremia: (4) Rhabdomyolysis: (5) Elevated troponin: (6) Hypomagnesemia: (7) Syncope: (8) Situational depression: I think the best option for this patient is to correct her electrolyte abnormalities and dehydration. I would keep her on telemetry until discharge and then plan for an event monitor after discharge. Resting echo showed no structural heart disease. She does not consider herself to be depressed but a mental health evaluation may be helpful. She seems like she is going to have strong family support and states that several family members are going to stay with her moving forward. History of Present Illness Attending Physician: Trent Shields MD History of Present Illness This is a 71-year-old diabetic female with no prior history of heart disease. Recently her and she has been having difficulty with grieving. She denies a previous history of depression but certainly she may have situational depression due to the of her . She has not been caring for herself over the past month. Her hemoglobin A1c is 14. She presented following a syncopal event and was found to be dehydrated with electrolyte abnormalities. She was fluid resuscitated and is currently alert and oriented. No cardiac complaints. She is in a normal sinus rhythm on telemetry. High-sensitivity troponins are borderline elevated and are most likely the result of dehydration and not due to acute coronary syndrome. The only trauma she states she sustained from her syncope appears to be a closed nasal fracture. Allergies Allergy/AdvReac Type Severity Reaction Status Date / Time No Known Allergies Allergy Unknown Verified 09/19/21 12:21 Home Medications Medication Instructions Recorded Confirmed Type GABAPENTIN (NEURONTIN) 600 mg PO TID #0 08/05/11 09/19/21 History OMEPRAZOLE (PRILOSEC) 20 mg PO QAM #0 08/05/11 09/19/21 History ATORVASTATIN (LIPITOR) 80 mg PO HS #0 tab 11/04/16 09/19/21 History HCTZ/LISINOPRIL (Lisinopril/Hctz 1 tab PO QAM #0 tab 11/04/16 09/19/21 History 10/12.5 Mg) LEVOTHYROXINE SODIUM 1 tab PO QAM 90 Days #90 tab 11/04/16 09/19/21 History METFORMIN HCL (GLUCOPHAGE) 1,000 mg PO BID #0 tab 11/04/16 09/19/21 History MULTIPLE VITAMINS W/ MINERALS (EYE 1 cap PO QAM #0 11/04/16 09/19/21 History VITAMINS) GLIMEPIRIDE 1 tab PO DAILYBD 30 Days #0 tab 11/30/16 09/19/21 History ACETAMINOPHEN (SB NON-ASPIRIN 1,000 mg PO Q8 21 Days #126 tab 12/02/16 09/19/21 Rx EXTRA STRE) Aspirin (Aspirin EC Low Dose) 81 mg PO BID 30 Days #60 12/02/16 09/19/21 Rx Tramadol HCl 50 - 100 mg PO Q4H PRN #60 tab 12/02/16 09/19/21 Rx Patient History Medical History CKD (chronic kidney disease), stage III Diabetic polyneuropathy DM type 2 (diabetes mellitus, type 2) Dyslipidemia GERD (gastroesophageal reflux disease) HTN (hypertension) Hypothyroidism (acquired) Surgical History H/O partial thyroidectomy History of appendectomy History of hysterectomy S/P cholecystectomy Social History Smoking Status: Never smoker Hx Alcohol Use: No Hx Substance Use: No Preferred Language: Indonesian Communication Ability: Effective Director Of Kids Required: No Beliefs That Will Affect Care: None Current Living Situation: Alone Other Information That Helps Us Care for You: No Feels Safe at Home: Yes Safety Concerns: Feels Safe At This Time Assistive Devices: Walker Review of Systems Review of Systems: Review of Systems: See HPI for pertinent positives. All other 10 point review of systems are negative. Physical Exam Physical Exam: General: no acute distress and stated age Head: normocephalic, no masses, lesions, tenderness or abnormalities Eyes: conjunctiva are pink and non-injected, sclera clear Neck: supple, no adenopathy, no bruits, normal jugular venous pulse, no hepatojugular reflux Chest: normal shape and normal respiratory effort Lungs: clear to auscultation and percussion Cardiac Exam: - regular rate & rhythm, no murmurs gallops or rubs - normal S1, normal S2 Pulses: 2(+) throughout Abdomen: abdomen soft, non-tender, no abnormal masses and no hepatosplenomegaly Musculoskeletal: no gait disturbance, no joint inflammation, no deforming arthritis Extremities: no edema and no cyanosis Neuro: grossly normal exam Results & Data ([facility]) Vital Signs (Past 12 Hours) Vital Signs Temp Pulse Pulse Pulse Resp BP Pulse Ox 09/20/21 08:18 37.5 C 73 20 121/78 93 09/20/21 07:36 74 09/20/21 04:12 36.8 C 88 18 99/65 L 94 09/20/21 00:20 74 09/19/21 23:38 36.7 C 70 18 150/78 H 97 Laboratory Results Laboratory Results - last 24 hr 09/19/21 09/19/21 09/19/21 12:10 12:10 12:10 WBC 6.45 RBC 3.94 L Hgb 11.7 L Hct 34.7 L MCV 88.1 MCH 29.7 MCHC 33.7 RDW Std Deviation 45.1 RDW Coeff of Edgard 13.9 Plt Count 153 MPV 11.0 H Immature Gran % (Auto) 0.2 Neut % (Auto) 78.3 Lymph % (Auto) 12.2 Cloud % (Auto) 8.2 Eos % (Auto) 0.6 Baso % (Auto) 0.5 Neut # (Auto) 5.05 Lymph # (Auto) 0.79 L Cloud # (Auto) 0.53 Eos # (Auto) 0.04 Baso # (Auto) 0.03 Immature Gran # (Auto) 0.01 Sodium 128 L Potassium 4.5 Chloride 98 Carbon Dioxide 24 Anion Gap 6 BUN 14 Creatinine 1.33 H Est Cr Clr Drug Dosing 39.5 Est GFR ( Amer) 46.8 Est GFR (Non-Af Amer) 40.4 BUN/Creatinine Ratio 10.5 Glucose 323 H* POC Glucose Estimat Average Glucose Hemoglobin A1c Osmolality Calcium 9.2 Phosphorus Magnesium 1.5 L Total Bilirubin 0.8 AST 75 H ALT 46 Alkaline Phosphatase 88 Total Creatine Kinase 292 H Troponin I High Sens 82.1 H* Total Protein 9.0 H Albumin 3.2 L Globulin 5.8 H Albumin/Globulin Ratio 0.6 L TSH 0.454 Urine Osmolality Ur Random Sodium Hepatitis C Ab (EIA) Hep C Ab Signal/Cutoff SARS-CoV-2, RNA, NAAT 09/19/21 09/19/21 09/19/21 12:10 13:03 13:03 WBC RBC Hgb Hct MCV MCH MCHC RDW Std Deviation RDW Coeff of Edgard Plt Count MPV Immature Gran % (Auto) Neut % (Auto) Lymph % (Auto) Cloud % (Auto) Eos % (Auto) Baso % (Auto) Neut # (Auto) Lymph # (Auto) Cloud # (Auto) Eos # (Auto) Baso # (Auto) Immature Gran # (Auto) Sodium Potassium Chloride Carbon Dioxide Anion Gap BUN Creatinine Est Cr Clr Drug Dosing Est GFR ( Amer) Est GFR (Non-Af Amer) BUN/Creatinine Ratio Glucose POC Glucose Estimat Average Glucose 344 Hemoglobin A1c 13.6 H Osmolality Calcium Phosphorus Magnesium Total Bilirubin AST ALT Alkaline Phosphatase Total Creatine Kinase Troponin I High Sens Total Protein Albumin Globulin Albumin/Globulin Ratio TSH Urine Osmolality 372 L Ur Random Sodium 55 Hepatitis C Ab (EIA) Hep C Ab Signal/Cutoff SARS-CoV-2, RNA, NAAT 09/19/21 09/19/21 09/19/21 14:30 16:51 16:53 WBC RBC Hgb Hct MCV MCH MCHC RDW Std Deviation RDW Coeff of Edgard Plt Count MPV Immature Gran % (Auto) Neut % (Auto) Lymph % (Auto) Cloud % (Auto) Eos % (Auto) Baso % (Auto) Neut # (Auto) Lymph # (Auto) Cloud # (Auto) Eos # (Auto) Baso # (Auto) Immature Gran # (Auto) Sodium Potassium Chloride Carbon Dioxide Anion Gap BUN Creatinine Est Cr Clr Drug Dosing Est GFR ( Amer) Est GFR (Non-Af Amer) BUN/Creatinine Ratio Glucose POC Glucose 317 H* 298 H Estimat Average Glucose Hemoglobin A1c Osmolality Calcium Phosphorus Magnesium Total Bilirubin AST ALT Alkaline Phosphatase Total Creatine Kinase Troponin I High Sens Total Protein Albumin Globulin Albumin/Globulin Ratio TSH Urine Osmolality Ur Random Sodium Hepatitis C Ab (EIA) Hep C Ab Signal/Cutoff SARS-CoV-2, RNA, NAAT NEGATIVE 09/19/21 09/19/21 09/19/21 17:54 17:54 17:54 WBC RBC Hgb Hct MCV MCH MCHC RDW Std Deviation RDW Coeff of Edgard Plt Count MPV Immature Gran % (Auto) Neut % (Auto) Lymph % (Auto) Cloud % (Auto) Eos % (Auto) Baso % (Auto) Neut # (Auto) Lymph # (Auto) Cloud # (Auto) Eos # (Auto) Baso # (Auto) Immature Gran # (Auto) Sodium Potassium Chloride Carbon Dioxide Anion Gap BUN Creatinine Est Cr Clr Drug Dosing Est GFR ( Amer) Est GFR (Non-Af Amer) BUN/Creatinine Ratio Glucose POC Glucose Estimat Average Glucose Hemoglobin A1c Osmolality 298 Calcium Phosphorus Magnesium Total Bilirubin AST ALT Alkaline Phosphatase Total Creatine Kinase Troponin I High Sens 97.6 H* D Total Protein Albumin Globulin Albumin/Globulin Ratio TSH Urine Osmolality Ur Random Sodium Hepatitis C Ab (EIA) Pending Hep C Ab Signal/Cutoff Pending SARS-CoV-2, RNA, NAAT 09/19/21 09/19/21 09/20/21 20:07 20:43 00:25 WBC RBC Hgb Hct MCV MCH MCHC RDW Std Deviation RDW Coeff of Edgard Plt Count MPV Immature Gran % (Auto) Neut % (Auto) Lymph % (Auto) Cloud % (Auto) Eos % (Auto) Baso % (Auto) Neut # (Auto) Lymph # (Auto) Cloud # (Auto) Eos # (Auto) Baso # (Auto) Immature Gran # (Auto) Sodium 131 L Potassium 3.5 D Chloride 100 Carbon Dioxide 25 Anion Gap 6 BUN 16 Creatinine 1.69 H D Est Cr Clr Drug Dosing 31.0 Est GFR ( Amer) 35.1 Est GFR (Non-Af Amer) 30.2 BUN/Creatinine Ratio 9.5 L Glucose 235 H POC Glucose 310 H* Estimat Average Glucose Hemoglobin A1c Osmolality Calcium 8.8 Phosphorus Magnesium Total Bilirubin AST ALT Alkaline Phosphatase Total Creatine Kinase Troponin I High Sens 110.2 H* Total Protein Albumin Globulin Albumin/Globulin Ratio TSH Urine Osmolality Ur Random Sodium Hepatitis C Ab (EIA) Hep C Ab Signal/Cutoff SARS-CoV-2, RNA, NAAT 09/20/21 09/20/21 05:34 07:44 WBC RBC Hgb Hct MCV MCH MCHC RDW Std Deviation RDW Coeff of Edgard Plt Count MPV Immature Gran % (Auto) Neut % (Auto) Lymph % (Auto) Cloud % (Auto) Eos % (Auto) Baso % (Auto) Neut # (Auto) Lymph # (Auto) Cloud # (Auto) Eos # (Auto) Baso # (Auto) Immature Gran # (Auto) Sodium 134 L Potassium 3.9 Chloride 104 Carbon Dioxide 25 Anion Gap 5 BUN 17 Creatinine 1.37 H D Est Cr Clr Drug Dosing 38.5 Est GFR ( Amer) 45.2 Est GFR (Non-Af Amer) 39.0 BUN/Creatinine Ratio 12.4 Glucose 152 H POC Glucose 138 H Estimat Average Glucose Hemoglobin A1c Osmolality Calcium 8.6 Phosphorus 3.6 Magnesium 2.0 Total Bilirubin AST ALT Alkaline Phosphatase Total Creatine Kinase 230 H Troponin I High Sens Total Protein Albumin Globulin Albumin/Globulin Ratio TSH Urine Osmolality Ur Random Sodium Hepatitis C Ab (EIA) Hep C Ab Signal/Cutoff SARS-CoV-2, RNA, NAAT Medications Administered Current Inpatient Medications Acetaminophen (Acetaminophen 325 Mg Tab) 650 mg PO Q4H PRN PRN Reason: Pain or Fever Stop: 10/19/21 15:47 Last Admin: 09/20/21 07:15 Dose: 650 mg Documented by: Aspirin (Aspirin 81 Mg Ectab) 81 mg PO BID [place] Stop: 10/19/21 20:59 Last Admin: 09/20/21 07:18 Dose: 81 mg Documented by: Atorvastatin Calcium (Atorvastatin 40 Mg Tab) 80 mg PO HS [place] Stop: 10/19/21 20:59 Last Admin: 09/19/21 20:42 Dose: 80 mg Documented by: Dextrose (Dextrose 50% 50 Ml Syringe) 25 - 50 ml IV UD PRN; Protocol PRN Reason: Hypoglycemia Protocol Stop: 10/19/21 16:11 Gabapentin (Gabapentin 600 Mg Tab) 600 mg PO TID [place] Stop: 10/19/21 20:59 Last Admin: 09/20/21 07:18 Dose: 600 mg Documented by: Glucagon (Glucagon For Inj 1 Mg Vial) 1 mg SQ UD PRN; Protocol PRN Reason: Hypoglycemia Protocol Stop: 10/19/21 16:11 Glucose (Glucose 10 Tabs/Tube) 4 - 8 tabs PO UD PRN; Protocol PRN Reason: Hypoglycemia Protocol Stop: 10/19/21 16:11 Glucose (Glucose 40% Gel 15 Gm Tube) 15 - 30 gm PO UD PRN; Protocol PRN Reason: Hypoglycemia Protocol Stop: 10/19/21 16:11 Sodium Chloride (Nss 1000ml) 1,000 mls @ 75 mls/hr IV .[id number] [facility] Stop: 09/20/21 18:24 Last Admin: 09/20/21 05:46 Dose: 75 mls/hr Documented by: Insulin Aspart (Insulin Aspart Per Unit) 0 units SC ACHS [facility] Stop: 10/19/21 16:29 Last Admin: 09/20/21 08:11 Dose: 2 units Documented by: Insulin Glargine (Insulin Glargine Solostar 100 Units/Ml 3 Ml Pen) 7 units SC BID [facility] Stop: 10/19/21 20:59 Last Admin: 09/20/21 08:13 Dose: 7 units Documented by: Levothyroxine Sodium (Levothyroxine Sodium 88 Mcg Tablet) 88 mcg PO DAILYBB [facility] Stop: 10/20/21 06:29 Last Admin: 09/20/21 06:09 Dose: 88 mcg Documented by: Magnesium Hydroxide (Magnesium Hydroxide Susp 30 Ml Udc) 30 ml PO Q12H PRN PRN Reason: Constipation Stop: 10/19/21 15:47 Miscellaneous (Carbohydrates For Hypoglycemia ) 15 - 30 gm PO UD PRN PRN Reason: Hypoglycemia Protocol Stop: 10/19/21 16:11 Pantoprazole Sodium (Pantoprazole 40 Mg Tab) 40 mg PO QAM [facility] Stop: 10/20/21 08:59 Last Admin: 09/20/21 07:18 Dose: 40 mg Documented by: (1) Closed fracture nasal bone Encounter type: initial encounter Qualified Code(s): S02.2XXA - Fracture of nasal bones, initial encounter for closed fracture (2) Syncope Syncope type: unspecified Qualified Code(s): R55 - Syncope and collapse
--- NOTE | 2021-09-20 11:06 | Electrocardiogram Report ---
Test Reason : Blood Pressure : / mmHG Vent. Rate : 084 BPM Atrial Rate : 084 BPM P-R Int : 150 ms QRS Dur : 082 ms QT Int : 370 ms P-R-T Axes : 053 -35 000 degrees QTc Int : 438 ms Normal sinus rhythm Left axis deviation Nonspecific T wave abnormality Abnormal ECG When compared with ECG of 04-NOV-2016 15:12, Nonspecific T wave abnormality now evident in Anterolateral leads Confirmed by Vishal Gonzalez ([id number]) on 09/20/2021 11:06:22 AM Referred By: ED Confirmed By:Orestes Gonzalez
[2021-09-20 12:18] LABS: Troponin I High Sensitivity 65.9 pg/ml (0-14)
--- NOTE | 2021-09-20 13:06 | Electrocardiogram Report ---
Test Reason : Blood Pressure : / mmHG Vent. Rate : 083 BPM Atrial Rate : 083 BPM P-R Int : 154 ms QRS Dur : 082 ms QT Int : 410 ms P-R-T Axes : 050 -45 -01 degrees QTc Int : 481 ms Sinus rhythm Left anterior fascicular block Poor R wave progression, consider anterior SC vs. lead placement vs. LVH Abnormal ECG Confirmed by Vishal Gonzalez ([id number]) on 09/20/2021 1:06:10 PM Referred By: REFERRED SELF Confirmed By:Orestes Gonzalez
--- NOTE | 2021-09-20 17:30 | Hospitalist Progress Note ---
Date of Service September 20, 2021 Assessment & Plan (1) Syncope: (2) Hypomagnesemia: (3) Elevated troponin: (4) Hyponatremia: (5) DM type 2 (diabetes mellitus, type 2): Plan: Presented on admission for fall and syncopal episode for about 45 minutes Syncope Possible related to hyperglycemia/Hyponatremia/dehydration Pt said BS when EMS checked was above 500 CT head showed no acute intracranial abnormality CT cervical spine showed no acute fracture Denies no focal neuro deficit Clinically stable Elevated troponin Admitting troponin of 82 then peaked to 105, now trending down to 65.9 EKG showed no acute ischemic changes Denies any chest pain ECHO showed normal LV wall motion abnormality. EF 60 to 65% Cardiology on board - no additional cardiac working Will need to arrange for Zio patch outpatient Uncontrolled type 2 diabetes Hba1c above 13 Pt was not able to administer her insulin properly Pharmacy on board for glycemic management Continue insulin therapy Follow BS Hyponatremia Mostly due to poor oral intake in the setting of hyperglycemia Na on admission 128, improved to 134 Continue monitor BMP Weakness/fall C-spine CT/CT head/CXR with no acute findings. CT face with right nasal bone fracture. Continue PT/OT eval Fall precaution Right nasal bone fracture CT face showed slightly displaced right nasal bone fracture pain control ENT consult pending Minimal CPK elevation CPK level [phone] [phone] Received IVF Minimally elevated AST AST [in July 2021] 205 (admitting AST of 75, continue to monitor). Continue monitor DVT prophylaxis: Consider DVT prophylactic anticoagulation if stays longer than 2 days, Re: facial trauma. Full code Admission and Anticipated Discharge Date Admission Date: September 19, 2021 Subjective Pt was seen and examined for follow up of syncope episode Lying in bed with no acute distress eating her lunch Pt said that she feels fine today Denies any chest pain, palpitation, dizziness and SOB Review of Systems Review of Systems: All systems reviewed & are unremarkable except as noted in Subjective Physical Exam Physical Exam: General- No acute distress Head- atraumatic Eyes- PERRL, EOMI, ENT- +Rt supraorbital bruise and Rt nose bruise noted. slight cut at the nasal bridge Neck- supple, no JVD Lungs- clear to auscultation Heart- regular rhythm; no murmur Abdomen- normal bowel sounds, soft, nontender Extremities- no calf tenderness Neuro- alert, oriented x 3; PERRL, EOMI; no facial palsy; no dysarthria Skin- warm & dry Results & Data Results & [facility] ([facility]) Vital Signs (Past 12 Hours) Vital Signs Temp Pulse Pulse Resp BP Pulse Ox 09/20/21 16:00 37.9 C H 76 18 150/83 H 95 09/20/21 15:20 67 09/20/21 11:54 36.7 C 67 20 116/79 93 09/20/21 08:18 37.5 C 73 20 121/78 93 09/20/21 07:36 74 (1) Syncope Syncope type: unspecified Qualified Code(s): R55 - Syncope and collapse
[2021-09-20] MEDS: ATORVASTATIN 40 MG TAB PO SCH (21:07)
[2021-09-21] MEDS: LEVOTHYROXINE SODIUM 88 MCG TABLET PO SCH (06:41)
[2021-09-21 07:02] LABS: Albumin Globulin Ratio 0.6 (0.9-2); Albumin Level 2.6 gm/dl (3.4-5.0); BUN Creatinine Ratio 13.3 (10-20); Bilirubin,Total 0.6 mg/dl (0.2-1.0); Calcium 8.7 mg/dl (8.5-10.1); Creatinine Clr Calc Pharmacy 36.6 ml/min; Est GFR (African American) 42.9 ml/min; Globulin 4.7 gm/dl (2.5-4.0); Potassium 3.9 mmol/L (3.5-5.1); Total Protein 7.3 gm/dl (6.0-8.3)
[2021-09-21] MEDS: INSULIN ASPART PER UNIT SC SCH ×3 (07:51→16:48)
[2021-09-21] MEDS: ASPIRIN 81 MG ECTAB PO SCH (08:54)
[2021-09-21] MEDS: INSULIN GLARGINE SOLOSTAR 100 UNITS/ML 3 ML PEN SC SCH (08:55)
[2021-09-21] MEDS: PANTOprazole 40 MG TAB PO SCH (08:55)
[2021-09-21] MEDS: GABAPENTIN 600 MG TAB PO SCH ×2 (08:55→13:43)
--- NOTE | 2021-09-21 10:45 | XRay Report ---
RIGHT SHOULDER 3 VIEWS CLINICAL HISTORY: Fall with right shoulder pain. FINDINGS: 3 views of the right shoulder are obtained. Correlation is made with chest x-ray dated 11/04. The skeletal structures are osteopenic. There is no radiographic evidence of acute fracture or dislocation. Productive degenerative change and chronic widening at the acromioclavicular joint is s imilar to previous. The glenohumeral articulation is preserved noting mild arthritic change. The over lying soft tissues are within normal limits. Imaged right lung parenchyma is clear as visualized. IMPRESSION: No acute bony abnormality is identified. Electronically signed by: Rangel Young M.D. 09/21/2021 10:43 AM
--- NOTE | 2021-09-21 16:45 | Discharge Summary ---
Date of Service September 21, 2021 Admission HPI Per Admitting Provider 71-year-old lady with PMH of uterine cancer, benign thyroid tumor, limited mobility, GERD, HTN, HLD, T2DM, hypothyroidism due to acquired atrophy of thyroid who recently lost her about a month ago presented to our ED 09/19 with complaint of syncope the evening prior to arrival. Patient and her sister Cleo present at bedside. Per patient, she passed out around 8 PM yesterday, woke up around 8:45 PM. She only remembers getting ready for shower and does not complain of any nausea/warmth/lightheadedness/dizziness/chest pain/palpitation/visual disturbances prior to passing out. When she woke up, she was immediately aware of surroundings and did not find herself with tongue bite/involuntary passage of urine or stool. Patient found herself very weak to get herself up and couldn't call her family members. 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 Her son helped her get up at around 10:30 PM. Patient reports finding herself lying on her back when she woke up, but it seems that she might have hit her face based on bruises present above her right eye, and right nose. Per patient's sisters at bedside, patient has not been eating/drinking well since about 1 month. Patient lost her about a month ago. Also patient was found to be not injecting her insulin correctly per patient's sister at bedside. Patient denies headache/dizziness/sore throat/cough/chest pain/palpitations/belly pain/acute changes in bowel or bladder habit. Patient reports pain in her right side of the nose. Patient denies smoking tobacco, very occasional use of alcohol, denies using recreational drugs current or past. Full code [patient's Sister Cleo Henson can be reached out if needed per patient.] Admission Exam Per Admitting Provider GENERAL: Alert and oriented x3. NAD, on RA. HEENT: No pallor, no icterus. Pupils equal, round and reactive to light. Oral mucosa moist. Rt supraorbital bruise and Rt nose bruise noted. NECK: No JVD, no neck masses. HEART: S1 and S2 heard. Regular rate and rhythm. No murmur, no gallop. RESPIRATORY SYSTEM: Normal AP diameter. No accessory muscle use. No wheezing, no crackles. ABDOMEN: Soft, bowel sounds present, nontender, no distention. CENTRAL NERVOUS SYSTEM: No facial droop. Speech is clear. Obeys simple commands. Moves extremities. EXTREMITIES: No edema, no erythema seen. Principal Diagnosis Syncope: Hypomagnesemia: Elevated troponin: Hyponatremia: Uncontrolled type 2 diabetes Weakness Fall Right nasal bone fracture Discharge Exam General- No acute distress Head- atraumatic Eyes- PERRL, EOMI, ENT- +Rt supraorbital bruise and Rt nose bruise noted. slight cut at the nasal bridge Neck- supple, no JVD Lungs- clear to auscultation Heart- regular rhythm; no murmur Abdomen- normal bowel sounds, soft, nontender Extremities- no calf tenderness Neuro- alert, oriented x 3; PERRL, EOMI; no facial palsy; no dysarthria Skin- warm & dry Discharge Data Allergies Allergy/AdvReac Type Severity Reaction Status Date / Time No Known Allergies Allergy Unknown Verified 09/19/21 12:21 Consultations 09/19/21 15:03 ED Decision to Admit Stat 09/19/21 17:26 Consult Otolaryngology (Head and Neck) Routine 09/19/21 19:41 Consult Cardiology Routine Ordered Studies 09/19/21 12:25 CT cervical spine wo con Stat CT facial bones wo con Stat CT head/brain wo con Stat RIGHT SHOULDER 3 VIEWS CLINICAL HISTORY: Fall with right shoulder pain. FINDINGS: 3 views of the right shoulder are obtained. Correlation is made with chest x-ray dated 11/04/2016. The skeletal structures are osteopenic. There is no radiographic evidence of acute fracture or dislocation. Productive degenerative change and chronic widening at the acromioclavicular joint is similar to previous. The glenohumeral articulation is preserved noting mild arthritic change. The overlying soft tissues are within normal limits. Imaged right lung p arenchyma is clear as visualized. IMPRESSION: No acute bony abnormality is identified. Electronically signed by: Rangel Young M.D. 09/21/2021 10:43 AM Dictated:09/21/21 1042 Transcribed: 09/21/[address] DOSE: HISTORY: Fall. Right-sided head injury. Trauma TECHNIQUE: Multiaxial CT images of the head were performed without the use of intravenous contrast. Automated exposure control was utilized for this study. A dose lowering technique was utilized adhering to the principles of ALARA. Comparison: None. Findings: The paranasal sinuses and mastoid air cells are clear. The calvarium and skull base are intact. There is no mass, hematoma, midline shift, acute infarct. White matter hypodensity is nonspecific but suggestive of microvascular ischemic change. The ventricles and sulci demonstrate mild age-related involutional changes. Impression: No acute intracranial abnormality. ACT 112: Negative or not required by law. Electronically signed by: Dawood Johnson M.D. 09/19/2021 1:21 PM Dictated:09/19/21 1315 Transcribed: 09/19/[address] DOSE: HISTORY: Fall. Right-sided facial injury. Trauma TECHNIQUE: Multiaxial CT images of the maxillofacial region were performed and reformatted in the coronal plane without the use of contrast. A dose lowering technique was utilized adhering to the principles of ALARA. COMPARISON: None. FINDINGS: Minimally displaced fracture within the right nasal bone. The mandible, pterygoid plates, lamina papyracea, orbital floors, zygomatic arches, and skull base are intact. The orbits are unremarkable. There is mild nasal soft tissue swelling. IMPRESSION: Slightly displaced right nasal bone fracture.. ACT 112: Negative or not required by law. Electronically signed by: Dawood Johnson M.D. 09/19/2021 1:29 PM Dictated:09/19/21 1325 Transcribed: 09/19/[address] DOSE: 864.39 mGy.cm HISTORY: Fall. Neck pain. Trauma TECHNIQUE: Multiaxial CT images of the cervical spine were performed and reformatted in the sagittal and coronal plane without the use of contrast. A dose lowering technique was utilized adhering to the principles of ALARA. COMPARISON: None. FINDINGS: No fractures. No subluxation. Prevertebral soft tissues and the C1-C2 interval are intact. No pneumothorax. Mild to moderate degenerative disc disease within the cervical spine most pronounced at the C6-C7 level. There are are also moderate facet degenerative changes throughout the cervical spine. IMPRESSION: No fractures within the cervical spine. ACT 112: Negative or not required by law. Electronically signed by: Dawood Johnson M.D. 09/19/2021 1:25 PM Dictated:09/19/21 1321 Transcribed: 09/19/21 1321 XR chest 1V portable HISTORY: Fall. weakness COMPARISON: Chest 11/04/2016. FINDINGS: The lungs are clear. Cardiac silhouette is normal in size. No pleural effusions. No pneumothorax. IMPRESSION: No acute process. ACT 112: Negative or not required by law. Electronically signed by: Dawood Johnson M.D. 09/19/2021 1:50 PM Diabetes Follow up Diabetes Follow-up Needed for HgbA1c >9% Hospital Course (1) Syncope: (2) Hypomagnesemia: (3) Elevated troponin: (4) Hyponatremia: (5) DM type 2 (diabetes mellitus, type 2): Presented on admission for fall and syncopal episode for about 45 minutes Syncope Possible related to hyperglycemia/Hyponatremia/dehydration Pt said BS when EMS checked was above 500 CT head showed no acute intracranial abnormality CT cervical spine showed no acute fracture Denies no focal neuro deficit Will need to arrange for Zio patch outpatient Clinically stable Elevated troponin Admitting troponin of 82 then peaked to 105, now trending down to 65.9 EKG showed no acute ischemic changes Denies any chest pain ECHO showed normal LV wall motion abnormality. EF 60 to 65% Cardiology on board - no additional cardiac working Clinically stable Uncontrolled type 2 diabetes Hba1c above 13 Pt was not able to administer her insulin properly breastfeeding educator met with pt and thought her how to administer the insulin Continue insulin therapy Follow up with the [facility] clinic Pt was advised to continue monitor your blood sugar and bring BS log at your next appointment with your provider Hyponatremia Mostly due to poor oral intake in the setting of hyperglycemia Na on admission 128, improved to 134 Check BMP in 1 week Weakness/fall C-spine CT/CT head/CXR with no acute findings. CT face with right nasal bone fracture. Continue PT/OT eval Fall precaution Right nasal bone fracture CT face showed slightly displaced right nasal bone fracture Denies any shortness of breath, running nose and epistaxis ENT was consulted, unfortunately they did not get the consult case discussed with Dr. Shipley that suggests to discharge on Nasal saline Follow up with with ENT next week Minimal CPK elevation CPK level [phone] Received IVF Minimally elevated AST AST [in July 2021] 205 (admitting AST of 75, continue to monitor). AST trending down to 66 today Check LFT in 1 week DVT prophylaxis: Consider DVT prophylactic anticoagulation if stays longer than 2 days, Re: facial trauma. Full code Total Time Total Time Spent Total Time Spent (In Minutes): 35 minutes Discharge Plan Discharge Items Patient Disposition: Home - Self-Care Reason For Visit: SYNCOPE Discharge Diagnosis: Syncope: Hypomagnesemia: Elevated troponin: Hyponatremia: Uncontrolled type 2 diabetes Weakness Fall Right nasal bone fracture Activity: Resume your previous activity Non-emergency contact: Primary Care Provider Call non-emergency contact if: you have any medication questions and your symptoms worsen Follow-up/Referrals: Ramone Flores MD [Outside Practitioners] - (Date & Time 09/24/2021 10:00 AM Provider [facility] ) Page Shipley MD [Surgeon] - 09/28/21 2:15 pm ([facility] [address], [place] [id number] ) Diet: Carb Consistent or DM2 Addtl Attending Provider Instructions: You were admitted for syncope and fall. Imaging found that you had a right nasal bone fracture. You blood sugar was elevated on admission. Follow up with your primary care provider on 09/24/2021 @ 10:00 AM LIN[facility] Follow up with Otolaryngology ( ENT ) Dr. Shipley on 09/28/21 @ 2:15 PM for the right nasal bone fracture [facility] [address], [place] [id number] Your provider will need to arrange for a heart monitor ( Zio Patch) to monitor your heart rhythm Follow up with the [facility] to monitor your blood sugar Continue monitor your blood sugar and bring your blood sugar log at your next appointment with your provider Fall precaution Please Seek urgent medical attention if you develops any shortness of breath, running nose, nose bleeding due to the right nasal bone fracture Continue to use nasal saline for now Check CMP in 1 week to monitor your liver enzymes, sodium level and renal function Pending Studies at Discharge: No Stand-Alone Forms: My [facility] Medical Referral Source, Smoking Cessation Medications and DC Order Prescriptions: Continued GABAPENTIN (NEURONTIN) 100 MG capsule 600 mg PO TID Qty: 0 RF: 0 OMEPRAZOLE (PRILOSEC) 10 MG capsule 20 mg PO QAM Qty: 0 RF: 0 ATORVASTATIN (LIPITOR) 80 MG tablet 80 mg PO HS Qty: 0 RF: 0 LEVOTHYROXINE SODIUM 88 MCG tablet 1 tab PO QAM 90 Days Qty: 90 RF: 3 METFORMIN HCL (GLUCOPHAGE) 1,000 MG tablet 1,000 mg PO BID Qty: 0 RF: 0 MULTIPLE VITAMINS W/ MINERALS (EYE VITAMINS) 1 CAP capsule 1 cap PO QAM Qty: 0 RF: 0 ACETAMINOPHEN (SB NON-ASPIRIN EXTRA STRE) 500 MG tablet 1,000 mg PO Q8 21 Days Qty: 126 RF: 0 Tramadol HCl 50 MG tablet 50 - 100 mg PO Q4H PRN (Reason: Pain) Qty: 60 RF: 0 Lantus Solostar U-100 Insulin 100 unit/mL (3 mL) insulin pen 18 unit SUBCUT HS RF: 0 glipizide 5 mg tablet extended release 24 hr 5 mg PO BID RF: 0 losartan 50 mg tablet 50 mg PO DAILY RF: 0 torsemide 10 mg tablet 10 mg PO DAILY RF: 0 Discharge Orders: Discharge Order (Routine); Ordered 09/21/21 Ordered By: Soumya England/Other Patient Handouts: Managing Type 2 Diabetes, Injection Pens Dc Admission Data Admit Date/Time: 09/19/21 15:41 Attending Provider: Soumya Cooley Admit Provider: Trent Shields Primary Care Provider: Frank Paredes Other Providers: Trent Shields ; Stephanie Armas ; Page Shipley ; Pawel Sandoval ; Jose Lozano ; Moreno Cline
[2021-09-21] MEDS ORDERED: SODIUM CHLORIDE 0.65% NA SOLN 45 ML (OCEAN) SCH (17:00)
== END 2021-09-21 17:56 | disposition home or self-care (01) | DRG 641 ==
LOC: ED 12:00 → SUATTDRO 15:41 → 2S 15:41